=== PATIENT | male | born 1950 | race Caucasian/White ===

== ENCOUNTER 2019-06-03 15:18 | Inpatient (IN) ==
[2019-06-03] MEDS ORDERED: Isovue-370 500 ML BOTTLE IVP ONE (15:47)
[2019-06-03] MEDS ORDERED: Ondansetron 4 MG/2 ML VIAL IVP ONE ×2 (15:54→17:34)
[2019-06-03] MEDS ORDERED: *HR* HYDROmorphone (PF) 1 MG/ML SYRINGE IVP ONE ×2 (15:54→17:34)
[2019-06-03] MEDS ORDERED: 0.9 % Sodium Chloride 1,000 ML IVC ONE (16:05)
--- NOTE | 2019-06-03 16:14 | Emergency Department Note ---
Disposition Clinical Impression: Pancreatitis, Acute gallstone pancreatitis Disposition: Admitted As Inpatient Time of Disposition: 19:19 General Adult HPI - General Chief complaint: ED Abdominal Pain Stated complaint: abd pain,nausea Time Seen by Provider: 06/03/19 15:38 Source: patient Limitations: no limitations Nursing Notes Reviewed: Yes Vital Signs Reviewed: Yes - History of Present Illness HPI Narrative: Patient is a 68-year-old male history of hypertension presenting the emergency department today with abdominal pain. Patient states he woke up this morning and 11 9 pain if thinks the pain woke him up from his sleep. He still describes the pain as sharp pain that started in his lower abdomen and has moving up as well as radiating to his back. Patient states that he was drinking last night. Patient's are felt pain like this before. Patient had a bowel movement this morning that was normal, patient ate crackers and a cookie this morning but got nauseous however he did not throw up. Patient has no chest pain or shortness of breath. Patient is a smoker. Patient has had no prior abdominal surgeries. Patient has no dark tarry stools or blood. Pain Scale: 8 - Related Data Allergies Allergy/AdvReac Type Severity Reaction Status Date / Time No Known Allergies Allergy Verified 06/03/19 15:26 All systems ED: reviewed and negative except as stated. Review of Systems: As Per HPI Constitutional: Denies: fever, chills ENT ED: Denies: ear pain, throat pain Cardiovascular: Denies: chest pain, palpitations, dyspnea on exertion, orthopnea Respiratory: Denies: cough, dyspnea, wheezes Gastrointestinal: Reports: abdominal pain, nausea. Denies: vomiting, diarrhea, constipation, hematemesis Genitourinary: Denies: urgency, dysuria, frequency, hematuria Musculoskeletal: Reports: back pain Integumentary: Denies: rash, abrasion Neurological: Denies: headache, weakness Psychiatric: Denies: anxiety, depression Past Medical History - Past Medical History Attestation: Yes The following information was validated with the patient. Source: patient Medical history: Reports: no medical history, hypertension Psychiatric history: Reports: no psych history - Social History Smoking Status: Current every day smoker Smokeless Tobacco Status: No Alcohol use: Reports: occasionally Drug use: Reports: none Physical Exam - General Limitations: no limitations General appearance: alert, in no apparent distress - Head Head exam: atraumatic, normocephalic - Eye Eye exam: Present: normal appearance, PERRL, EOMI. Absent: scleral icterus - ENT ENT exam: normal exam, normal oropharynx, mucous membranes moist - Neck Neck exam: Present: normal inspection, full ROM - Chest Chest inspection: Present: normal inspection, symmetric chest wall rise. Absent: tenderness - Respiratory Respiratory exam: Present: normal lung sounds bilaterally. Absent: respiratory distress, wheezes - Cardiovascular Cardiovascular exam: Present: regular rate, normal rhythm, normal heart sounds - Abdominal Exam Abdominal exam: Present: soft, tenderness, guarding, normal bowel sounds. Absent: rebound, rigidity, Mix's sign, tenderness at McBurney's Point, scar Abdominal tenderness: Present: diffuse, moderate - Back Exam Back exam: Present: normal inspection, full ROM. Absent: tenderness, CVA tenderness (R), CVA tenderness (L) - Neurological Exam Neurological exam: Present: alert, oriented X3 - Psychiatric Psychiatric exam: Present: normal affect, normal mood - Skin Skin exam: Present: warm, dry Course Vital Signs Temperature 97.3 F L 06/03/19 15:23 Pulse Rate 73 06/03/19 15:23 Respiratory Rate 18 06/03/19 15:23 Blood Pressure 158/76 06/03/19 15:23 O2 Sat by Pulse Oximetry 96 06/03/19 15:23 Temperature 97.3 F L 06/03/19 15:23 Pulse Rate 76 06/03/19 17:55 Respiratory Rate 15 06/03/19 17:55 Blood Pressure 150/73 06/03/19 17:55 O2 Sat by Pulse Oximetry 97 06/03/19 17:55 Oxygen Delivery Oxygen Delivery Room Air Medical Decision Making - [facility] Narrative Medical decision making narrative: Patient presented to the emergency room with abdominal pain. Likely pancreatitis. Patient states he was drinking last night. I have ordered labs as well as a CT of his abdomen. I started a bag of fluids as well as provided IV Dilaudid for the patient's pain. Labs consistent with pancreatitis with an elevated lipase greater than 1800. Patient's pain is been controlled here with IV Dilaudid as well as Zofran for nausea. Spoke with GI. GI is aware having spoke with the hospitalist deformity. 19:18 Spoke with hospitalist who agreed to admit the patient. - Medical Records Medical records reviewed: Yes I reviewed the patient's medical records. - Lab Data Lab results reviewed: Yes I reviewed the patient's lab results. Result diagrams: 06/03/19 16:11 06/03/19 16:11 Lab Results 06/03/19 06/03/19 06/03/19 Range/Units 16:00 16:11 16:11 WBC 12.7 H (4.3-11.1) K/mcL RBC 5.24 (4.19-5.50) M/mcL Hgb 17.6 H (12.9-16.9) g/dL Hct 51.1 H (37.5-50.1) % MCV 97.5 (83.0-100.0) fL MCH 33.6 H (28.0-33.3) pg MCHC 34.4 (31.6-35.5) g/dL RDW 13.8 (11.5-14.5) % Plt Count 234 (140-400) K/mcL MPV 10.0 (9.4-12.4) fL Immature Gran % 0.3 (0-4) % Seg Neutrophils % 78.3 % Lymphocytes % 15.3 % Monocytes % 5.4 % Eosinophils % 0.3 % Basophils % 0.4 % Neutrophils # 10.0 H (1.6-8.9) K/mcL Lymphocytes # 2.0 (0.6-4.6) K/mcL Monocytes # 0.7 (0.0-1.3) K/mcL Eosinophils # 0.0 (0.0-0.6) K/mcL Basophils # 0.1 (0.0-0.2) K/mcL Sodium 132 L (136-145) mEq/L Potassium 4.0 (3.5-5.1) mEq/L Chloride 100 (98-107) mEq/L Carbon Dioxide 25 (23-29) mEq/L BUN 11 (8-23) mg/dL Creatinine 0.87 (0.70-1.30) mg/dL Est GFR ( Amer) > 60 (> 60) Est GFR (Non-Af Amer) > 60 (> 60) BUN/Creatinine Ratio 13 (6-26) Glucose 158 H (70-105) mg/dL Calculated Osmolality 277 L (280-300) Calcium 10.3 (8.6-10.3) mg/dL Total Bilirubin 0.9 (0.3-1.0) mg/dL Direct Bilirubin 0.2 (0.0-0.2) mg/dL Indirect Bilirubin 0.7 (0.0-1.2) mg/dL AST 18 (13-39) Units/L ALT 21 (7-52) Units/L Alkaline Phosphatase 76 (34-104) Units/L Serum Total Protein 7.6 (6.4-8.9) g/dL Albumin 4.6 (3.5-5.7) g/dL Globulin 3.0 (2.4-3.5) g/dL Albumin/Globulin Ratio 1.5 (1.1-2.2) Lipase > 1800 H (11-82) Units/L Urine Color Yellow (Yellow) Urine Clarity Clear (Clear) Urine pH 6.0 (5.0-8.0) pH Units Ur Specific [place] 1.021 (1.010-1.025) Urine Protein Trace (Neg-Trace) mg/dL Urine Glucose (UA) Normal (Normal) mg/dL Urine Ketones Negative (Negative) mg/dL Urine Blood Negative (Negative) Urine Nitrite Negative (Negative) Urine Bilirubin Negative (Negative) Urine Urobilinogen Normal (Normal) mg/dL Ur Leukocyte Esterase Negative (Negative) Ur Culture Indicated? NO (NO) - Radiology Data Radiology results reviewed: Yes I reviewed the patient's radiology results. Critical Care Time Critical Care Time: No Attestation Statement - Attestation Attestation: I examined this patient and my medical decision-making was reviewed with the Resident Physician. I agree with the documented findings, disposition and treatment plan as described except to the extent set forth below. Patient has had abdominal pain. The pain is especially in the epigastric region. The patient apparently did drink alcohol yesterday. Patient has some mild guarding to this area. The patient has distention to his abdomen as well. Patient has no chest pain, clear breath sounds on examination, good bowel sounds. The patient does have it appears to be pancreatitis. This is possibly gallstone pancreatitis. The patient is going to be admitted, given antibiotics. Patient however is not septic. The patient will be admitted in stable condition. Case was also discussed with GI.
[2019-06-03 16:18] LABS: Bilirubin,Urine Negative (Negative); Blood,Urine Negative (Negative); Clarity,Urine Clear (Clear); Color,Urine Yellow (Yellow); Glucose,Urine (UA) Normal (Normal); Ketones,Urine Negative (Negative); Leukocyte Esterase,Urine Negative (Negative); Nitrite,Urine Negative (Negative); Protein,Urine Trace mg/dL (Neg-Trace); Specific Gravity,Urine 1.021 (1.010-1.025); Urobilinogen,Urine Normal (Normal)
[2019-06-03 16:23] LABS: Basophils # 0.1 K/mcL (0.0-0.2); Basophils % 0.4 %; Eosinophils % 0.3 %; Hematocrit 51.1 % (37.5-50.1); Hemoglobin 17.6 g/dL (12.9-16.9); Immature Granulocytes % 0.3 % (0-4); Lymphocytes % 15.3 %; Mean Corpuscular HGB Conc 34.4 g/dL (31.6-35.5); Mean Corpuscular Hemoglobin 33.6 pg (28.0-33.3); Mean Corpuscular Volume 97.5 fL (83.0-100.0); Monocytes # 0.7 K/mcL (0.0-1.3); Monocytes % 5.4 %; Platelet Count 234 K/mcL (140-400); Red Blood Count 5.24 M/mcL (4.19-5.50); Red Cell Distribution Width 13.8 % (11.5-14.5); Segmented Neutrophils % 78.3 %; White Blood Count 12.7 K/mcL (4.3-11.1)
[2019-06-03 17:05] LABS: Alanine Aminotransferase 21 Units/L (7-52); Albumin 4.6 g/dL (3.5-5.7); Albumin/Globulin Ratio 1.5 (1.1-2.2); Alkaline Phosphatase 76 Units/L (34-104); Aspartate Amino Transferase 18 Units/L (13-39); BUN/Creatinine Ratio 13 (6-26); Bilirubin,Direct 0.2 mg/dL (0.0-0.2); Bilirubin,Indirect 0.7 mg/dL (0.0-1.2); Bilirubin,Total 0.9 mg/dL (0.3-1.0); Blood Urea Nitrogen 11 mg/dL (8-23); Calcium 10.3 mg/dL (8.6-10.3); Carbon Dioxide 25 mEq/L (23-29); Chloride 100 mEq/L (98-107); Glucose 158 mg/dL (70-105); Lipase > 1800 Units/L (11-82); Osmolality,Calculated 277 (280-300); Sodium 132 mEq/L (136-145); Total Protein 7.6 g/dL (6.4-8.9); eGFR For African Americans > 60 (> 60); eGFR For Non-African Americans > 60 (> 60)
[2019-06-03] MEDS ORDERED: Naloxone 0.4 MG/ML INJ IVP PRN ×2 (19:39→19:42)
[2019-06-03] MEDS ORDERED: Ondansetron 4 MG/2 ML VIAL IVP PRN (19:39)
--- NOTE | 2019-06-03 19:47 | Internal Med History&Physical ---
Date of Encounter: 06/03/19 Time of Encounter: 19:43 Internal Medicine - H&P: HPI Chief complaint: Abdominal pain History of present illness: Mr. Chaves is a 68 year old male with past medical history of hypertension and smoking history who presented to the ED due to complaints of abdominal pain. Patient states he was in his usual state of health last night. He awoke up this morning around 7 AM due to significant lower abdominal pain 7 out of 10 in intensity described as constant and dull. Patient had his morning cup of coffee and a cookie which only seemed to aggravate his pain. He reports pain became progressively worse throughout the day and gradually began to localize towards the epigastrium with radiation on both sides to his back. Patient reports naus ea but no vomiting or diarrhea. He does endorse subjective fever and chills. No prior history of similar abdominal pain. Patient is a chronic smoker and currently smokes a pack and half a day since he was 16. Drinks 4 beers twice a week. Patient currently retired. Reports family history of bone cancer and is brother. On arrival patient was afebrile, mildly hypertensive with normal heart rate. Laboratory workup notable for a mild leukocytosis of 12.7, hemoglobin of 7.6 and hematocrit 51.1. Lipase found to be greater than 1800. CT of the abdomen was performed which showed a 5 mm distal common bile duct calculus causing prior duodenal and peripancreatic edema worrisome for pancreatitis. Additionally a 1.5 cm mildly heterogeneous renal lesion was also noted as well as bilateral adr enal nodules. Patient was given fluids. Responded to Dilaudid in the ED. Case discussed with Dr. Roldan who was hopeful that the stone would pass on its own but will consult patient in the morning. Past Med Surg Social Fam HX - Past Medical History Medical history: no medical history, hypertension Psychiatric history: no psych history - Social History Smoking Status: Current every day smoker Smokeless Tobacco Status: No Alcohol use: occasionally Drug use: none Internal Medicine - H&P: Meds Lisinopril/Hydrochlorothiazide [Lisinopril-Hctz 10-12.5 mg Tab] 1 tab PO QAM 06/04/19 [History] Simvastatin [Zocor] 40 mg PO HS 06/04/19 [History] Allergy/AdvReac Type Severity Reaction Status Date / Time No Known Allergies Allergy Verified 06/03/19 15:26 All Systems PM: A 10-system review of systems was performed and is negative for pertinent findings except as documented above in the HPI. - Constitutional Constitutional: no chills, no fever(s), no night sweats - EENT Eyes: no change in vision, no discharge, no pain, no photophobia Ears: no ear discharge, no ear pain, no tinnitus Nose, mouth and throat: no dysphagia, no nasal discharge, no neck pain, no sore throat - Cardiovascular Cardiovascular ROS IM: no chest pain, no diaphoresis, no dyspnea, no lightheadedness, no palpitations, no syncope - Respiratory Respiratory: no cough, no dyspnea, no wheezing, no excessive phlegm production - Gastrointestinal Gastrointestinal: no abdominal pain, no diarrhea, no hematemesis, no hematochezia, no melena, no nausea, no vomiting - Musculoskeletal Musculoskeletal ROS IM: no numbness, no tingling - Integumentary Integumentary IM: no rash, no unusual bruising - Neurological Neurological ROS: no confusion, no convulsions, no focal weakness, no numbness, no tingling, no tremor(s) - Hematologic/Lymphatic Hematologic/Lymphatic: no easy bruising - Constitutional Vitals: Temp Pulse Resp BP Pulse Ox 97.3 F L 76 15 150/73 97 06/03/19 15:23 06/03/19 17:55 06/03/19 17:55 06/03/19 17:55 06/03/19 17:55 Exam: General: Alert and oriented Skin:Normal color, no rash, no lesions. HEENT:EOM, pupils equal, round and reactive. Cardiovascular:Normal S1 & S2, no rubs, murmurs or gallops. No JVD. Pulse regu lar. Lungs:Normal breath sounds, no wheezes or crackles. Abdomen: Abdomen soft and diffusely tender to palpation. No rebound or guarding noted. Extremities:No deformity, no edema or tenderness, no joint swelling or clubbing. Neurological:Normal cognition and motor skills. Pulses:Carotid and radial pulses normal +2. Rest of the physical exam is non contributory Internal Med - H&P Results - Labs CBC & Chem 7: 06/04/19 04:18 06/04/19 04:18 Labs: Short CBC 06/03/19 Range/Units 16:11 WBC 12.7 H (4.3-11.1) K/mcL Hgb 17.6 H (12.9-16.9) g/dL Hct 51.1 H (37.5-50.1) % Plt Count 234 (140-400) K/mcL Neutrophils # 10.0 H (1.6-8.9) K/mcL BMP 06/03/19 16:11 Sodium 132 L Potassium 4.0 Chloride 100 Carbon Dioxide 25 BUN 11 Creatinine 0.87 Glucose 158 H Calcium 10.3 Liver Function 06/03/19 Range/Units 16:11 Total Bilirubin 0.9 (0.3-1.0) mg/dL Direct Bilirubin 0.2 (0.0-0.2) mg/dL AST 18 (13-39) Units/L ALT 21 (7-52) Units/L Alkaline Phosphatase 76 (34-104) Units/L Albumin 4.6 (3.5-5.7) g/dL Urine 06/03/19 Range/Units 16:00 Urine Color Yellow (Yellow) Urine Clarity Clear (Clear) Urine pH 6.0 (5.0-8.0) pH Units Ur Specific [place] 1.021 (1.010-1.025) Urine Protein Trace (Neg-Trace) mg/dL Urine Glucose (UA) Normal (Normal) mg/dL - Impressions ITS Impressions Abdomen/Pelvis CT 06/03/19 15:47 IMPRESSION: 5 mm distal common bile duct calculus causing prior duodenal and peripancreatic edema worrisome for pancreatitis. 1.5 cm mildly heterogeneous right indeterminate renal lesion. Renal protocol CT or MRI may be beneficial for further characterization. Bilateral adrenal nodules these can be further evaluated when evaluating the suspicious appearing right renal indeterminate lesion. D/ / Rafi Key / Rafi Key Interpreting Provider: Rafi Key - Assessment and Plan (1) Acute gallstone pancreatitis Current Visit: Yes Status: Acute Assessment and plan: Patient presenting with acute abdominal pain epigastric and radiating to the back. Found to have an elevated lipase of over 1800. CT scan of the abdomen showing a 5 mm distal common bile duct calculus causing prior duodenal and peripancreatic edema consistent with gallstone pancreatitis. Case was discussed with Dr. Roldan with gastroenterology. Currently hemodynamically stable though does appear to be hemoconcentrated. Received 1 L fluid bolus. Has responded to Dilaudid for pain. Clinically does not appear to be septic at this time. -Continue moderately aggressive fluid hydration and monitor for signs of fluid overload -Pain control as needed with sublingual oxycodone -We will consider antibiotic prophylaxis if patient begins to exhibit signs of ongoing inflammatory/infectious process. -[facility] market consultant and will follow the patient in the morning. -We will likely need surgery consult for possible cholecystectomy prior to discharge. (2) Hypertension Current Visit: Yes Status: Acute Assessment and plan: Mildly hypertensive. We will hold blood pressure medications for now and monitor. Qualifiers: Hypertension type: essential hypertension Qualified Code(s): I10 - Essential (primary) hypertension (3) Hyperlipidemia Current Visit: Yes Status: Acute Qualifiers: Hyperlipidemia type: mixed hyperlipidemia Qualified Code(s): E78.2 - Mixed hyperlipidemia (4) Smoking history Current Visit: Yes Status: Acute Assessment and plan: Patient has a significant smoking history. Currently smokes a pack and half a day. Discussed risks of continued behavior and smoking cessation. Denies need for nicotine patch at this time (5) Abnormal finding on CT scan Current Visit: Yes Status: Acute Assessment and plan: A 1.5 cm mildly heterogeneous right indeterminant renal lesion noted on CT of the abdomen and pelvis. Renal protocol with CT or MRI may be beneficial for further characterization. Additionally bilateral adrenal nodules were seen. -Consider consult to oncology for further recommendations in addition to further imaging workup. (6) DVT prophylaxis Current Visit: Yes Status: Acute Assessment and plan: Subcutaneous heparin - Time Spent With Patient Total time spent is greater than 50% in coordination of care (as documented) at patient's floor/unit and/or counseling patient:
[2019-06-03] MEDS: Ringers Solution, Lactated 1,000 ML IVC SCH (20:57)
[2019-06-03] MEDS ORDERED: Ketorolac 15 MG/ML VIAL IVP ONE (23:23)
[2019-06-03] MEDS: *HR* Heparin 5,000 UNIT/ML VIAL SQ SCH (23:37)
[2019-06-04] MEDS: Ringers Solution, Lactated 1,000 ML IVC SCH ×3 (01:18→14:20)
[2019-06-04 04:50] LABS: Basophils % 0.2 %; Eosinophils % 0.2 %; Hematocrit 47.4 % (37.5-50.1); Hemoglobin 16.2 g/dL (12.9-16.9); Immature Granulocytes % 0.4 % (0-4); Lymphocytes # 1.5 K/mcL (0.6-4.6); Lymphocytes % 12.4 %; Mean Corpuscular HGB Conc 34.2 g/dL (31.6-35.5); Mean Corpuscular Volume 99.4 fL (83.0-100.0); Mean Platelet Volume 10.3 fL (9.4-12.4); Monocytes # 0.9 K/mcL (0.0-1.3); Monocytes % 7.3 %; Neutrophils # 9.7 K/mcL (1.6-8.9); Platelet Count 196 K/mcL (140-400); Red Blood Count 4.77 M/mcL (4.19-5.50); Red Cell Distribution Width 13.7 % (11.5-14.5); Segmented Neutrophils % 79.5 %; White Blood Count 12.3 K/mcL (4.3-11.1)
[2019-06-04 04:57] LABS: INR 1.1; Prothrombin Time 12.2 Seconds (9.4-12.1)
[2019-06-04 05:13] LABS: Alanine Aminotransferase 15 Units/L (7-52); Albumin 3.8 g/dL (3.5-5.7); Albumin/Globulin Ratio 1.6 (1.1-2.2); Alkaline Phosphatase 63 Units/L (34-104); Aspartate Amino Transferase 14 Units/L (13-39); BUN/Creatinine Ratio 13 (6-26); Bilirubin,Total 0.8 mg/dL (0.3-1.0); Blood Urea Nitrogen 11 mg/dL (8-23); Calcium 8.8 mg/dL (8.6-10.3); Carbon Dioxide 25 mEq/L (23-29); Chloride 101 mEq/L (98-107); Chol/HDL Ratio 3.6 (0-4.9); Cholesterol 150 mg/dL (< 200); Globulin 2.4 g/dL (2.4-3.5); Glucose 126 mg/dL (70-105); HDL Cholesterol 42 mg/dL (40-59); LDL Cholesterol,Calculated 91 mg/dL (0-99); Magnesium 1.9 mg/dL (1.6-2.6); Osmolality,Calculated 283 (280-300); Potassium 3.8 mEq/L (3.5-5.1); Sodium 136 mEq/L (136-145); Total Protein 6.2 g/dL (6.4-8.9); Triglycerides 84 mg/dL (< 150); eGFR For African Americans > 60 (> 60); eGFR For Non-African Americans > 60 (> 60)
[2019-06-04] MEDS: *HR* Heparin 5,000 UNIT/ML VIAL SQ SCH ×2 (07:36→16:38)
[2019-06-04] MEDS ORDERED: Promethazine 12.5 MG in 0.9 % Sodium Chloride 50 ML IVPB PRN (08:39)
--- NOTE | 2019-06-04 08:48 | Gastroenterology Consult Note ---
<Geovanna Swanson - Last Filed: 06/04/19 09:51> Date of Encounter: 06/04/19 Time of Encounter: 08:40 - Assessment and plan (1) Acute gallstone pancreatitis Current Visit: Yes Status: Acute Assessment and plan: Presented with acute onset sharp abdominal pain in the right upper, epigastric and left upper quadrants The night prior, he had 4 beers with two cheeseburgers and reports 4 beers twice a week In the ED noted to have lipase above [address] finding of peripancreatic edema and 5 mm distal common bile duct Continues to have severe pain this morning, reporting not taking a deep breath limited due to pain Recommend IV hydration and NPO at this time Restart diet as tolerated, if nausea continues and diet cannot be restarted consider dobhoff tube for feeding to assist in mucosal barrier Continue pain control with IV pain medications and zofran as well as phenergan ordered for nausea Recommended changing diet outpatient and alcohol cessation counseling to prevent recurrences MRCP pending and may require an ERCP for stone extraction Ordered spirometry to prevent sequela of lung injury Further recommendations by Dr. Roldan - Time Spent With Patient Total time spent is greater than 50% in coordination of care (as documented) at patient's floor/unit and/or counseling patient: GI History of Present Illness - Data of Consult Requesting Physician: Martínez Morrell DO - Consult Narrative History of present illness: Mr. Chaves is a 68 year old male with past medical history of hypertension and hyperlipidemia on losartan and stain and denies any other medication use. He presented to the ED on 06/03/19 complaining of acute onset of severe abdominal pain on the morning of 06/03/19. He does have history of daily tobacco use with [id number] history. Additionally reports drinking 4 beers twice a week with his buddies, denies any other drug use such as marijuana, cocaine, heroin. He reported the pain woke him up in the morning. Which is described as constant and sharp, localized in the epigastric region radiating to right upper and left upper quadrants. Complaining of nausea but no emesis or bowel changes. He denies pain like this in the past and reports the oral pain medication is not relieving this pain. Does report he has his gallbladder intact. He reports the night prior he drank 4 beers and ate 2 cheeseburgers. In the ED he was noted to have WBC of 12.7 with lipase greater than 1800. He had a CT of the abdomen which showed a 5 mm distal common bile duct calculus causing peripancreatic edema concerning for pancreatitis. This morning he is in bed complaining of severe abdominal pain which worsens with a deep breath. He denies fever, chills, chest pain, emesis. Past Med Surg Social Fam HX - Past Medical History Medical history: no medical history, hypertension Psychiatric history: no psych history - Past Surgical History Surgical History: no surgical history - Social History Smoking Status: Current every day smoker Smokeless Tobacco Status: No Alcohol use: occasionally Drug use: none - Family History Brother Hx Family Cancer: Yes (Bone cancer in his brother) - Gastrointestinal Gastrointestinal: Present: abdominal pain, nausea. Absent: diarrhea, vomiting - Constitutional Constitutional: no fever(s), no weight loss - EENT Nose, mouth and throat: Absent: dysphagia, sore throat - Cardiovascular Cardiovascular ROS: Absent: chest pain, palpitations - Respiratory Respiratory IM: Absent: cough, dyspnea, hemoptysis - Genitourinary Genitourinary: Absent: change in color, Urinary frequency - Neurological ROS Neurological GI: Absent: headache(s), weakness - Musculoskeletal Musculoskeletal ROS GI: Absent: back pain - Integumentary Integumentary GI: Absent: jaundice, pruritis, rash - Constitutional Vitals: Temp Pulse Resp BP Pulse Ox 98.4 F 87 17 102/68 90 06/04/19 06:18 06/04/19 06:18 06/04/19 06:18 06/04/19 06:18 06/04/19 06:18 General appearance: Present: A&O X 3 Exam: mild distress - Head Head exam: Present: atraumatic, normal inspection - Eye Eye exam: Present: EOMI, sclera anicteric. Absent: conjunctival injection - ENT ENT exam: Present: mucous membranes moist, normal oropharynx - Neck Neck exam general surgery: Present: full ROM. Absent: tenderness, trachea midline - Respiratory Respiratory exam: Present: CTAB. Absent: rhonchi, wheezes - Cardiovascular Cardiovascular exam: Present: RRR, +S1, +S2 - GI/Abdominal GI/Abdominal exam: Present: soft, tenderness. Absent: firm Additional comments: Diffuse, worse in left upper and right upper quadrants - Extremities Exam Extremities exam: Present: warm. Absent: pedal edema, tenderness - Skin Skin exam: Present: dry, intact Results - Labs CBC & Chem 7: 06/04/19 04:18 06/04/19 04:18 Labs: Last Result 06/04/19 04:18 Calcium 8.8 Triglycerides 84 Entire Visit 06/04/19 06/04/19 06/04/19 04:18 04:18 04:18 Hgb 16.2 Hct 47.4 PT 12.2 H Total Bilirubin 0.8 AST 14 ALT 15 - ABG ABG results: PT/INR, D-dimer PT 12.2 Seconds (9.4-12.1) H 06/04/19 04:18 - Impressions Impressions Abdomen/Pelvis CT 06/03/19 15:47 IMPRESSION: 5 mm distal common bile duct calculus causing prior duodenal and peripancreatic edema worrisome for pancreatitis. 1.5 cm mildly heterogeneous right indeterminate renal lesion. Renal protocol CT or MRI may be beneficial for further characterization. Bilateral adrenal nodules these can be further evaluated when evaluating the suspicious appearing right renal indeterminate lesion. D/ / Rafi Key / Rafi Key Interpreting Provider: Rafi Key Consult Discharge Plan - Plan Referrals: NONE,PCP [Primary Care Provider] - <Johnson Roldan - Last Filed: 06/06/19 22:22> Date of Encounter: 06/06/19 - Time Spent With Patient Total time spent is greater than 50% in coordination of care (as documented) at patient's floor/unit and/or counseling patient: GI History of Present Illness - Data of Consult Patient: new to practice Consult date: 06/04/19 Requesting Physician: Martínez Morrell DO - Consult Narrative Reason for consult: Acute pancreatitis History of present illness: Mr. Chaves is a 68 year old male presenting with acute pancreatitis. CT scan shows a primarily stone inspissated at the ampulla confirmed by MRCP given the patient's white count and unremitting pain patient may need ERCP with sphincterotomy despite the fact that he does not have ascending cholangitis as his liver as his liver enzymes are normal. I suspect the patient will need an ERCP unless he dramatically improves. We will then need a laparoscopic cholecystectomy prior to discharge was hospital. Made very clear to him that he needs to completely discontinue alcohol. He drinks about between 4-5 beers a day and actually had 4 beers a day before the pain started with very probable that he has underlying chronic pancreatitis - Constitutional Vitals: Temp Pulse Resp BP Pulse Ox 98.3 F 82 18 139/78 98 06/06/19 20:00 06/06/19 20:00 06/06/19 20:00 06/06/19 20:00 06/06/19 20:00 Results - Labs CBC & Chem 7: 06/06/19 00:44 06/06/19 00:44 - ABG ABG results: ABG ABG pH 7.42 pH Units (7.32-7.45) 06/04/19 09:37 ABG pCO2 38 mmHg (35-45) 06/04/19 09:37 ABG pO2 46 mmHg (85-104) L* 06/04/19 09:37 ABG O2 Saturation 83 % (95-98) L 06/04/19 09:37 PT/INR, D-dimer PT 12.2 Seconds (9.4-12.1) H 06/04/19 04:18 - Impressions Impressions Chest X-Ray 06/05/19 13:08 IMPRESSION: Vascular congestion with bibasilar atelectasis or infiltrate, left greater than right. D/ / 06/05/2019 14:31:13 Franck Magana MD / [facility] Interpreting Provider: Franck Magana MD - Attending Attestation I examined this patient and my medical decision-making was reviewed with the Resident Physician. I agree with the documented findings, disposition and treatment plan as described except to the extent set forth below.
[2019-06-04] MEDS ORDERED: Morphine Sulfate 2 MG/ML SYRINGE IVP PRN (09:06)
--- NOTE | 2019-06-04 09:29 | Internal Med Progress Note ---
<Luis Alberto Grossman - Last Filed: 06/04/19 15:04> Hospitalist Progress Note - Encounter Date of Encounter: 06/04/19 Time of Encounter: 09:29 - Subjective Interval History: Pt was lying in bed upon my arrival. Denies any chest pain, trouble breathing, headaches, diarrhea, constipation, vomiting. Admits to feeling nauseous and abdominal pain radiating to the back. No new complaints - Exam Vitals: Temp Pulse Resp BP Pulse Ox 98.4 F 87 17 102/68 90 06/04/19 06:18 06/04/19 06:18 06/04/19 06:18 06/04/19 06:18 06/04/19 06:18 Exam: Gen: AAOx3, NAD, pleasant CVS: S1, S2, regular rhythm Lungs: CTA B/L, no rhonchi, no rales, on 2L O2 nasal cannula Abdominal: Tenderness to palpation in epigastric area, atraumatic Extremities: warm to touch, dorsal pedal pulses strong B/L, dry - Assessment and Plan (1) Acute gallstone pancreatitis Current Visit: Yes Status: Acute Assessment and Plan: -Presented to ED 06/03 c/o epigastric pain that radiated to the back, worst with food, associated with nausea. -CT scan abdomen in ER showed peripancreatic edema concerning for pancreatitis and 5mm distal common bile duct concerning for gallstone blockage. -Lipase >1800 in ER -made NPO -Pain management w/ morphine -Aggressive fliud resuscitation -GI consulted; MRCP ordered 06/04/2019 -Planning for potential ERCP -IV abx withheld but will watch for signs of ascending infection due to obstruction -Continue management per GI; NPO, IV Fluids, pain management -Watch for compartment syndrome with fluids; sensation loss, new abdominal pain -Will likely need surgery consult for cholecystecomy prior to d/c (2) Abnormal finding on CT scan Current Visit: Yes Status: Acute Assessment and Plan: A 1.5 cm mildly heterogeneous right indeterminate renal lesion noted on CT of the abdomen and pelvis. Renal protocol with CT or MRI may be beneficial for further characterization. Additionally bilateral adrenal nodules were seen. -Consider consult to oncology for further recommendations in addition to further imaging workup (3) Hypertension Current Visit: Yes Status: Acute Assessment and Plan: mildy hypertensive at admission; will hold hTN medications for now and monitor (4) DVT prophylaxis Current Visit: Yes Status: Acute Assessment and Plan: subcutaneous heparin (5) Smoking history Current Visit: Yes Status: Acute Assessment and Plan: -Patient has extensive 75 year smoking history. -Smoking cessation discussed -Denies need for nicotine patch at this time - Time Spent with Patient Total time spent is greater than 50% in coordination of care (as documented) at patient's floor/unit and/or counseling patient: Internal Medicine: Result - Labs CBC & Chem 7: 06/04/19 04:18 06/04/19 04:18 Labs: Short CBC 06/03/19 06/04/19 Range/Units 16:11 04:18 WBC 12.7 H 12.3 H (4.3-11.1) K/mcL Hgb 17.6 H 16.2 (12.9-16.9) g/dL Hct 51.1 H 47.4 (37.5-50.1) % Plt Count 234 196 (140-400) K/mcL Neutrophils # 10.0 H 9.7 H (1.6-8.9) K/mcL BMP 06/03/19 06/04/19 16:11 04:18 Sodium 132 L 136 Potassium 4.0 3.8 Chloride 100 101 Carbon Dioxide 25 25 BUN 11 11 Creatinine 0.87 0.82 Glucose 158 H 126 H Calcium 10.3 8.8 Liver Function 06/03/19 06/04/19 Range/Units 16:11 04:18 Total Bilirubin 0.9 0.8 (0.3-1.0) mg/dL Direct Bilirubin 0.2 (0.0-0.2) mg/dL AST 18 14 (13-39) Units/L ALT 21 15 (7-52) Units/L Alkaline Phosphatase 76 63 (34-104) Units/L Albumin 4.6 3.8 (3.5-5.7) g/dL Urine 06/03/19 Range/Units 16:00 Urine Color Yellow (Yellow) Urine Clarity Clear (Clear) Urine pH 6.0 (5.0-8.0) pH Units Ur Specific [place] 1.021 (1.010-1.025) Urine Protein Trace (Neg-Trace) mg/dL Urine Glucose (UA) Normal (Normal) mg/dL - ABG Interpretation ABG results: PT/INR, D-dimer PT 12.2 Seconds (9.4-12.1) H 06/04/19 04:18 - Impressions Impressions Abdomen/Pelvis CT 06/03/19 15:47 IMPRESSION: 5 mm distal common bile duct calculus causing prior duodenal and peripancreatic edema worrisome for pancreatitis. 1.5 cm mildly heterogeneous right indeterminate renal lesion. Renal protocol CT or MRI may be beneficial for further characterization. Bilateral adrenal nodules these can be further evaluated when evaluating the suspicious appearing right renal indeterminate lesion. D/ / Rafi Key / Rafi Key Interpreting Provider: Rafi Key Consult Discharge Plan - Plan Referrals: NONE,PCP [Primary Care Provider] - <Martínez Morrell - Last Filed: 06/04/19 17:37> Hospitalist Progress Note - Encounter Date of Encounter: 06/04/19 - Exam Vitals: Temp Pulse Resp BP Pulse Ox 98.5 F 88 17 104/62 95 06/04/19 14:54 06/04/19 14:54 06/04/19 14:54 06/04/19 14:54 06/04/19 14:54 - Assessment and Plan (1) Acute gallstone pancreatitis Current Visit: Yes Status: Acute (2) Hypertension Current Visit: Yes Status: Acute (3) Hyperlipidemia Current Visit: Yes Status: Acute (4) Smoking history Current Visit: Yes Status: Acute (5) DVT prophylaxis Current Visit: Yes Status: Acute (6) Abnormal finding on CT scan Current Visit: Yes Status: Acute (7) Tobacco abuse Current Visit: Yes Status: Acute - Time Spent with Patient Total time spent is greater than 50% in coordination of care (as documented) at patient's floor/unit and/or counseling patient: Internal Medicine: Result - Labs CBC & Chem 7: 06/04/19 04:18 06/04/19 04:18 Labs: Short CBC 06/04/19 Range/Units 04:18 WBC 12.3 H (4.3-11.1) K/mcL Hgb 16.2 (12.9-16.9) g/dL Hct 47.4 (37.5-50.1) % Plt Count 196 (140-400) K/mcL Neutrophils # 9.7 H (1.6-8.9) K/mcL BMP 06/04/19 04:18 Sodium 136 Potassium 3.8 Chloride 101 Carbon Dioxide 25 BUN 11 Creatinine 0.82 Glucose 126 H Calcium 8.8 Liver Function 06/04/19 06/04/19 Range/Units 04:18 08:49 Total Bilirubin 0.8 0.9 (0.3-1.0) mg/dL Direct Bilirubin 0.2 (0.0-0.2) mg/dL AST 14 14 (13-39) Units/L ALT 15 16 (7-52) Units/L Alkaline Phosphatase 63 63 (34-104) Units/L Albumin 3.8 3.8 (3.5-5.7) g/dL - ABG Interpretation ABG results: ABG ABG pH 7.42 pH Units (7.32-7.45) 06/04/19 09:37 ABG pCO2 38 mmHg (35-45) 06/04/19 09:37 ABG pO2 46 mmHg (85-104) L* 06/04/19 09:37 ABG O2 Saturation 83 % (95-98) L 06/04/19 09:37 PT/INR, D-dimer PT 12.2 Seconds (9.4-12.1) H 06/04/19 04:18 - Impressions Impressions Abdomen/Pelvis CT 06/03/19 15:47 IMPRESSION: 5 mm distal common bile duct calculus causing prior duodenal and peripancreatic edema worrisome for pancreatitis. 1.5 cm mildly heterogeneous right indeterminate renal lesion. Renal protocol CT or MRI may be beneficial for further characterization. Bilateral adrenal nodules these can be further evaluated when evaluating the suspicious appearing right renal indeterminate lesion. D/ / Rafi Key / Rafi Key Interpreting Provider: Rafi Key Abdomen MRI 06/04/19 08:55 IMPRESSION: 1. Truncation of the distal common bile duct likely due to the 5 mm stone seen on CT. Minimal upstream biliary ductal dilatation. 2. Peripancreatic edema compatible with acute pancreatitis. No peripancreatic fluid collection. 3. A 1.3 cm T2 hypointense lesion in the lower pole of the right kidney corresponds to the indeterminate lesion seen on CT. As per the CT report, recommend further evaluation with contrast-enhanced renal CT or MRI. 4. Right lower lobe airspace disease could represent pneumonia. D/ / Naresh Fowler MD / Naresh Fowler MD Interpreting Provider: Naresh Fowler MD Chest X-Ray 06/04/19 09:03 IMPRESSION: Mild bilateral lower lobe opacities which could represent edema or infiltrates. Small bilateral effusions. Follow up to resolution is suggested. D/ / 06/04/2019 11:12:08 Tegan Chacon MD / lv Interpreting Provider: Tegan Chacon MD Abdomen Ultrasound 06/04/19 10:30 IMPRESSION: 1. Dilated common bile duct measuring 8.4 mm. This was shown to be secondary to a calculus in the distal common bile duct seen on the CT scan from yesterday. D/ / Edd Pollard MD / Edd Pollard MD Interpreting Provider: Edd Pollard MD - Attending Attestation The history, physical exam, and medical decision making was performed by the medical student either while I was physically present and actively involved or I personally re-performed the exam and medical decision making. I have verified the accuracy of the medical student's documentation with regards to the history, physical exam findings, and medical decision making on 06/04/19. Mr Chaves is currently admitte for acute gallstone pancreatitis. He remains moderate to high risk due to potential for worsening clinical status. Mr Chaves is having a lot of abdominal pain. No fever or chills. Hurts to take deep breath. No diarrhea but has nausea. Exam: Alert. Uncomfortable. NC. Mucus membranes dry. EOMI. Neck supple. Heart reg and tachy. No wheeze. ABd distended and tender in epigastic region. No rash. Moves all extremties. I/P 1. Acute gallstone pancreatitis - NPO. POWDER MONKEY pump for pain control. GI eval - ERCP. 2 HTN Further diagnoses and plan as above. <Martínez Morrell A - Last Filed: 06/04/19 17:37> (2) Hypertension Qualifiers: Hypertension type: essential hypertension Qualified Code(s): I10 - Essential (primary) hypertension (3) Hyperlipidemia Qualifiers: Hyperlipidemia type: mixed hyperlipidemia Qualified Code(s): E78.2 - Mixed hyperlipidemia
[2019-06-04 09:40] LABS: ABG Base Excess 0 mEq/L (-2 to 3); ABG HCO3 25 mEq/L (21-27); ABG Oxygen Saturation 83 % (95-98); ABG PCO2 38 mmHg (35-45); ABG PH 7.42 pH Units (7.32-7.45); ABG PO2 46 mmHg (85-104); ABG TCO2 26 mEq/L (20-26)
[2019-06-04 09:54] LABS: Albumin 3.8 g/dL (3.5-5.7); Albumin/Globulin Ratio 1.5 (1.1-2.2); Bilirubin,Direct 0.2 mg/dL (0.0-0.2); Bilirubin,Indirect 0.7 mg/dL (0.0-1.2); Bilirubin,Total 0.9 mg/dL (0.3-1.0); Globulin 2.6 g/dL (2.4-3.5); Total Protein 6.4 g/dL (6.4-8.9)
[2019-06-04] MEDS ORDERED: *HR* HYDROmorphone 2 MG/ML SYRINGE IVP PRN (13:53)
[2019-06-04] MEDS: Morphine PCA 30 MG/ 30 ML 30 ML PCA.VIAL IVC PRN (15:01)
[2019-06-05] MEDS: *HR* Heparin 5,000 UNIT/ML VIAL SQ SCH ×4 (00:15→23:57)
[2019-06-05] MEDS: Morphine PCA 30 MG/ 30 ML 30 ML PCA.VIAL IVC PRN (04:12)
[2019-06-05] MEDS ORDERED: *HR* FentaNYL (PF) 100 MCG/2 ML VIAL ONE ×2 (07:17→11:11)
[2019-06-05] MEDS ORDERED: *HR* Midazolam HCl 2 MG/2 ML VIAL ONE (07:17)
[2019-06-05] MEDS ORDERED: *HR* Propofol 200 MG/20 ML VIAL IVP ONE (07:17)
[2019-06-05] MEDS ORDERED: *HR* Succinylcholine 200 MG/10 ML VIAL IVP ONE (07:18)
[2019-06-05] MEDS ORDERED: Ondansetron 4 MG/2 ML VIAL ONE (07:18)
[2019-06-05] MEDS ORDERED: Dexamethasone 4 MG/ML VIAL ONE (07:18)
[2019-06-05] MEDS ORDERED: Lidocaine -MPF 2% 2 ML VIAL ONE (07:18)
[2019-06-05] MEDS ORDERED: *HR* Rocuronium Bromide 50 MG/5 ML VIAL ONE (07:18)
--- NOTE | 2019-06-05 07:22 | Anesthesia Evaluation PreOp ---
Date of Encounter: 06/05/19 Time of Encounter: 07:22 - Past History Alcohol Use: occasionally Drug use: none Medications and Allergies Lisinopril/Hydrochlorothiazide [Lisinopril-Hctz 10-12.5 mg Tab] 1 tab PO QAM 06/04/19 [History] Simvastatin [Zocor] 40 mg PO HS 06/04/19 [History] Allergy/AdvReac Type Severity Reaction Status Date / Time No Known Allergies Allergy Verified 06/03/19 15:26 Anesthesia Results - Labs 06/04/19 04:18 06/04/19 04:18
--- NOTE | 2019-06-05 07:29 | Anesthesia Evaluation PreOp ---
Date of Encounter: 06/05/19 Time of Encounter: 08:18 - Past History Planned Operation: ERCP Cardiac History: HTN, Hyperlipidemia Pulmonary History: Smoker, Other (hypoxia) Other Medical History: Hepatic (common duct stone) Alcohol Use: occasionally Drug use: none Medications and Allergies Lisinopril/Hydrochlorothiazide [Lisinopril-Hctz 10-12.5 mg Tab] 1 tab PO QAM 06/04/19 [History] Simvastatin [Zocor] 40 mg PO HS 06/04/19 [History] Allergy/AdvReac Type Severity Reaction Status Date / Time No Known Allergies Allergy Verified 06/03/19 15:26 - Meds/Allergy Pre-op Review Medications Reviewed: Yes Allergies Reviewed: Yes Beta Blockers on Current Med List: No Anesthesia Results - Labs 06/04/19 04:18 06/04/19 04:18 abg had po2 of 47 but patient has no history of hypoxia and excellant exercise tolerance Anesthesia Exam Vital Signs/O2 Sat, Most Current Temp Pulse Resp BP Pulse Ox 99.6 F 85 16 101/60 92 06/05/19 03:13 06/05/19 03:13 06/05/19 03:13 06/05/19 03:13 06/05/19 03:13 Vital Signs/O2 Sat/Glucose, Most Recent Temp Pulse Resp BP Pulse Ox 99.6 F 85 16 101/60 92 06/05/19 03:13 06/05/19 03:13 06/05/19 03:13 06/05/19 03:13 06/05/19 03:13 Blood Glucose* 103 - HEENT Pupil (Motor): Pupils equal, EOMI Mallampati: III Teeth: Edentulous Denture Type: Upper: Complete, Lower: Complete Oral Opening: Greater than 3 - CLEAT FEEDER LOC: Oriented CLEAT FEEDER Motor: Normal RUE, Normal LUE, Normal RLE, Normal LLE, Normal Face CLEAT FEEDER Sensory: Normal: RUE, LUE, RLE, LLE, Face - Pulmonary Breath Sounds: bilateral Clear Respiratory Effort: Symmetrical Anesthesia Assess/Plan ASA Score: 3 Level of consciousness: Cooperative, Oriented Anesthetic Plan: General Monitoring Plan: Standard Monitors Recovery Plan: PACU
[2019-06-05] MEDS ORDERED: Lidocaine HCL 4 ML Topical Solution (Laryng-O-Jet Kit Sterile Pak) TP ONE (09:14)
[2019-06-05] MEDS ORDERED: *HR* PHENYLEPHRINE 1,000 MCG/10 ML SYRINGE IVP ONE ×2 (09:20→09:49)
[2019-06-05] MEDS ORDERED: *HR* Magnesium Sulfate 1 GM/2 ML VIAL ONE (09:40)
[2019-06-05] MEDS ORDERED: EPHEDrine 50 MG/ML VIAL ONE (09:50)
[2019-06-05] MEDS ORDERED: *HR* Vasopressin 20 UNIT/ML VIAL ONE (09:54)
[2019-06-05] MEDS ORDERED: Indomethacin 50 MG SUPP.RECT RC ONE (11:21)
[2019-06-05] MEDS ORDERED: Albuterol 2.5 MG/3 ML NEBULIZER ONE (11:56)
[2019-06-05] MEDS: Albuterol 2.5 MG/3 ML NEBULIZER IH ONE (11:58)
[2019-06-05] MEDS ORDERED: *HR* LORazepam 2 MG/ML VIAL IVP PRN ×3 (13:07)
--- NOTE | 2019-06-05 16:16 | Internal Med Progress Note ---
Hospitalist Progress Note - Encounter Date of Encounter: 06/05/19 Time of Encounter: 12:45 - Subjective Interval History: Mr Chaves is currently admitted for acute pancreatitis. He remains high risk at this time. Mr Chaves just returned from ERCP. Stent was placed in the CBD. ROCKET MOTOR TESTER has helped his pain. No fever or chills overnight. At this time he is somnolent post procedure. He had some respiratory issues during procedure and oxygen saturation 88% at this time. at bedside and discussed his need to stop ETOH intake with him (he previously denied use). - Exam Vitals: Temp Pulse Resp BP Pulse Ox 97.8 F 82 16 112/66 88 06/05/19 14:35 06/05/19 14:35 06/05/19 14:35 06/05/19 14:35 06/05/19 14:35 Exam: General: Alert and oriented. Comfortable at this time. Somnolent but arousable. Skin: Normal color, no rash, H: Normocephalic. EENT: EOMI, Mucus membranes dry. Cardiovascular: Normal S1 & S2, Regular. No murmur. Not tachycardic c urrently. Lungs: Crackles heart bilaterally. Abdomen: Soft, distended. Hypoactive bowel sounds. Tender epigastric region. Extremities: No deformity, no edema Neurological: Normal cognition and motor skills. Pulses: radial pulses normal +2. Rest of the physical exam is non contributory - Assessment and Plan (1) Acute respiratory failure with hypoxia Current Visit: Yes Status: Acute Assessment and Plan: Pt has developed hypoxemia - ? fluids versus early ARDS. Needs to continue IV fluids for pancreatitis. Check CXR and give a dose of IV Lasix. (2) Acute gallstone pancreatitis Current Visit: Yes Status: Acute Assessment and Plan: Pt presented to ED with acute pancreatitis. Thought to have CBD stone but no obstruction. Monitored on med surg - had ERCP this AM. Significant edema in area. Pain control and fluids. Ice chips. Pt at high risk for further complications. (3) Hypertension Current Visit: Yes Status: Acute Assessment and Plan: Controlled at this time. (4) Hyperlipidemia Current Visit: Yes Status: Chronic Assessment and Plan: Chronic issue. (5) Tobacco abuse Current Visit: Yes Status: Chronic Assessment and Plan: cessation counselling. (6) ETOH abuse Current Visit: Yes Status: Suspected Assessment and Plan: Pt denied ETOH but was discussing cessation with him today. CIWA placed. - Time Spent with Patient Total time spent is greater than 50% in coordination of care (as documented) at patient's floor/unit and/or counseling patient: Internal Medicine: Result - Labs CBC & Chem 7: 06/04/19 04:18 06/04/19 04:18 - ABG Interpretation ABG results: ABG ABG pH 7.42 pH Units (7.32-7.45) 06/04/19 09:37 ABG pCO2 38 mmHg (35-45) 06/04/19 09:37 ABG pO2 46 mmHg (85-104) L* 06/04/19 09:37 ABG O2 Saturation 83 % (95-98) L 06/04/19 09:37 PT/INR, D-dimer PT 12.2 Seconds (9.4-12.1) H 06/04/19 04:18 - Impressions Impressions Chest X-Ray 06/04/19 09:03 IMPRESSION: Mild bilateral lower lobe opacities which could represent edema or infiltrates. Small bilateral effusions. Follow up to resolution is suggested. D/ / 06/04/2019 11:12:08 Tegan Cahcon MD / lv Interpreting Provider: Tegan Chacon MD Cath/Invasive Procedure 06/05/19 00:00 IMPRESSION: Biliary stent placement. Please refer to the procedure report for further details. D/ / Franck Magana MD / Franck Magana MD Interpreting Provider: Franck Magana MD Chest X-Ray 06/05/19 13:08 IMPRESSION: Vascular congestion with bibasilar atelectasis or infiltrate, left greater than right. D/ / 06/05/2019 14:31:13 Franck Magana MD / lv Interpreting Provider: Franck Magana MD Consult Discharge Plan - Plan Referrals: NONE,PCP [Primary Care Provider] - (3) Hypertension Qualifiers: Hypertension type: essential hypertension Qualified Code(s): I10 - Essential (primary) hypertension (4) Hyperlipidemia Qualifiers: Hyperlipidemia type: mixed hyperlipidemia Qualified Code(s): E78.2 - Mixed hyperlipidemia
[2019-06-05 17:11] LABS: Basophils % 0.1 %; Hematocrit 41.2 % (37.5-50.1); Immature Granulocytes % 1.1 % (0-4); Lymphocytes % 5.7 %; Mean Corpuscular HGB Conc 34.5 g/dL (31.6-35.5); Mean Corpuscular Hemoglobin 34.5 pg (28.0-33.3); Mean Corpuscular Volume 100.2 fL (83.0-100.0); Mean Platelet Volume 10.1 fL (9.4-12.4); Monocytes # 1.3 K/mcL (0.0-1.3); Monocytes % 7.2 %; Neutrophils # 15.6 K/mcL (1.6-8.9); Platelet Count 149 K/mcL (140-400); Red Blood Count 4.11 M/mcL (4.19-5.50); Segmented Neutrophils % 85.9 %; White Blood Count 18.2 K/mcL (4.3-11.1)
[2019-06-05 17:13] LABS: Hemoglobin 14.2 g/dL (12.9-16.9)
[2019-06-05] MEDS ORDERED: 0.9 % Sodium Chloride 500 ML ONE (17:21)
[2019-06-05 17:31] LABS: Alanine Aminotransferase 12 Units/L (7-52); Albumin 3.4 g/dL (3.5-5.7); Albumin/Globulin Ratio 1.3 (1.1-2.2); Alkaline Phosphatase 56 Units/L (34-104); Aspartate Amino Transferase 15 Units/L (13-39); BUN/Creatinine Ratio 16 (6-26); Bilirubin,Total 1.2 mg/dL (0.3-1.0); Blood Urea Nitrogen 12 mg/dL (8-23); Calcium 7.4 mg/dL (8.6-10.3); Carbon Dioxide 24 mEq/L (23-29); Chloride 101 mEq/L (98-107); Globulin 2.6 g/dL (2.4-3.5); Glucose 119 mg/dL (70-105); Lipase 188 Units/L (11-82); Osmolality,Calculated 283 (280-300); Potassium 3.3 mEq/L (3.5-5.1); Sodium 136 mEq/L (136-145); eGFR For African Americans > 60 (> 60); eGFR For Non-African Americans > 60 (> 60)
[2019-06-06 01:08] LABS: Basophils % 0.1 %; Eosinophils % 0.1 %; Hematocrit 39.2 % (37.5-50.1); Immature Granulocytes % 0.7 % (0-4); Lymphocytes # 1.3 K/mcL (0.6-4.6); Lymphocytes % 9.5 %; Mean Corpuscular HGB Conc 33.2 g/dL (31.6-35.5); Mean Corpuscular Hemoglobin 33.9 pg (28.0-33.3); Mean Corpuscular Volume 102.1 fL (83.0-100.0); Mean Platelet Volume 9.9 fL (9.4-12.4); Monocytes % 7.6 %; Neutrophils # 11.3 K/mcL (1.6-8.9); Platelet Count 142 K/mcL (140-400); Red Blood Count 3.84 M/mcL (4.19-5.50); Red Cell Distribution Width 14.2 % (11.5-14.5); White Blood Count 13.7 K/mcL (4.3-11.1)
[2019-06-06 01:27] LABS: Alanine Aminotransferase 11 Units/L (7-52); Albumin 3.2 g/dL (3.5-5.7); Albumin/Globulin Ratio 1.3 (1.1-2.2); Alkaline Phosphatase 55 Units/L (34-104); Aspartate Amino Transferase 15 Units/L (13-39); BUN/Creatinine Ratio 17 (6-26); Bilirubin,Total 1.1 mg/dL (0.3-1.0); Blood Urea Nitrogen 14 mg/dL (8-23); Calcium 7.2 mg/dL (8.6-10.3); Carbon Dioxide 28 mEq/L (23-29); Chloride 101 mEq/L (98-107); Globulin 2.5 g/dL (2.4-3.5); Glucose 117 mg/dL (70-105); Lipase 112 Units/L (11-82); Osmolality,Calculated 286 (280-300); Potassium 3.6 mEq/L (3.5-5.1); Sodium 137 mEq/L (136-145); Total Protein 5.7 g/dL (6.4-8.9); eGFR For African Americans > 60 (> 60); eGFR For Non-African Americans > 60 (> 60)
[2019-06-06] MEDS: Morphine PCA 30 MG/ 30 ML 30 ML PCA.VIAL IVC PRN (06:17)
[2019-06-06] MEDS ORDERED: 0.9 % Sodium Chloride 1,000 ML IVC SCH ×3 (08:00→18:45)
--- NOTE | 2019-06-06 08:16 | AcuteCare Surgery Consult Note ---
Date of Encounter: 06/06/19 Time of Encounter: 08:00 Assessment and Plan (1) Acute gallstone pancreatitis Current Visit: Yes Status: Acute Pt diagnosis of acute gallstone pancreatitis is discussed. Laparoscopic Cholecystectomy is recommended. Procedure for the surgery, risks and benefits are discussed in detail. Possible known complications for Laparoscopic Cholecystectomy are bleeding, infection, bile duct injury, bile leak, small intestine or stomach injury, stroke, DVT/PE, GA or . Pt understands these risks, which in this case are low. Pt wishes to proceed with surgery as soon as possible. Informed consent is obtained. Pt condition is stable. Surgery is scheduled. No IOC needed as pt had ERCP yesterday. (2) Hypertension Current Visit: Yes Status: Acute Qualifiers: Hypertension type: essential hypertension Qualified Code(s): I10 - Essential (primary) hypertension (3) Hyperlipidemia Current Visit: Yes Status: Chronic Qualifiers: Hyperlipidemia type: mixed hyperlipidemia Qualified Code(s): E78.2 - Mixed hyperlipidemia History of Present Illness Consult date: 06/06/19 Reason for consult: abdominal pain Requesting physician: Martínez Morrell History of present illness: This 68 y/o male pt presents to [facility] c/o severe e pigastric and RUQ abdominal pain. Pt reports pain is severe and unrelenting. Pt c/o LUQ pain as well. Pt reports pain radiates into back. Pt reports intractable nausea and vomiting. Pt denies changes in BM. Pt denies CP. He was having SOB on admission but, SOB is much better today. Pt denies fever. He was found to have acute gallstone pancreatitis. He had ERCP yesterday with clearance of sludge fr om the duct. Past Med Surg Social Fam HX - Past Medical History Medical history: no medical history, hypertension Psychiatric history: no psych history - Past Surgical History Surgical History: no surgical history - Social History Smoking Status: Current every day smoker Smokeless Tobacco Status: No Alcohol use: occasionally Drug use: none - Family History Brother Hx Family Cancer: Yes (Bone cancer in his brother) Medications and Allergies Lisinopril/Hydrochlorothiazide [Lisinopril-Hctz 10-12.5 mg Tab] 1 tab PO QAM 06/04/19 [History] Simvastatin [Zocor] 40 mg PO HS 06/04/19 [History] Allergy/AdvReac Type Severity Reaction Status Date / Time No Known Allergies Allergy Verified 06/03/19 15:26 Review of Systems All systems PM: The remainder of the systems were reviewed and are negative - Constitutional no anorexia, no chills, no fatigue, no fever(s), no night sweats, no weakness - EENT Nose, mouth and throat: no dizziness, no dry mouth, no dysphagia, no nasal congestion, no nasal discharge, no sinus pain, no sinus pressure, no sore throat - Cardiovascular dyspnea, no chest pain, no diaphoresis, no edema - Respiratory dyspnea, no cough, no wheezing - Gastrointestinal abdominal pain, bloating, cramping, heartburn, nausea, vomiting, no constipation, no diarrhea, no hematemesis - Genitourinary no dysuria, no flank pain, no urinary frequency - Musculoskeletal no back pain, no joint swelling, no limited range of motion, no neck pain - Integumentary no dry skin, no pruritus, no rash, no wounds, no jaundice - Neurological no confusion, no dizziness, no focal weakness, no weakness - Psychiatric no anxiety, no depression - Endocrine no fatigue - Hematologic/Lymphatic no easy bleeding, no easy bruising General Surgery Exam Initial Vital Signs Temp Pulse Resp BP Pulse Ox 97.3 F L 73 18 158/76 96 06/03/19 15:23 06/03/19 15:23 06/03/19 15:23 06/03/19 15:23 06/03/19 15:23 - General physical appearance well nourished, no distress, moderate pain. negative: jaundice - Eyes PERRL, normal ocular movement. negative: icteric - ENT no congestion, dry mucosa. negative: nasal discharge - Neck no masses, trachea midline, no lymphadectomy, no venous distension - Respiratory normal respiratory effort, clear to auscultation - Cardiovascular Cardiovascular exam: Present: RRR. Absent: JVD - Abdomen Abdomen general surgery: Present: bowel sounds present, soft, tender. Absent: distended, guarding, rebound Abdominal Tenderness: Present: epigastic, RUQ, LUQ - Genitourinary Present: normal penis with no external lesions - Integumentary Integumentary general surgery: Present: warm and dry - Neurologic Present: CN 2-12 grossly intact, normal coordination - Musculoskeletal Present: normal posture - Psychiatric Psychiatric general surgery: Present: A&Ox3, appropriate Exam Initial Vital Signs Temp Pulse Resp BP Pulse Ox 97.3 F L 73 18 158/76 96 06/03/19 15:23 06/03/19 15:23 06/03/19 15:23 06/03/19 15:23 06/03/19 15:23 Results - Labs 06/06/19 00:44 06/06/19 00:44 Abnormal lab results WBC 13.7 K/mcL (4.3-11.1) H 06/06/19 00:44 RBC 3.84 M/mcL (4.19-5.50) L 06/06/19 00:44 Hgb 17.6 g/dL (12.9-16.9) H 06/03/19 16:11 Hct 51.1 % (37.5-50.1) H 06/03/19 16:11 MCV 102.1 fL (83.0-100.0) H 06/06/19 00:44 MCH 33.9 pg (28.0-33.3) H 06/06/19 00:44 Neutrophils # 11.3 K/mcL (1.6-8.9) H 06/06/19 00:44 PT 12.2 Seconds (9.4-12.1) H 06/04/19 04:18 ABG pO2 46 mmHg (85-104) L* 06/04/19 09:37 ABG O2 Saturation 83 % (95-98) L 06/04/19 09:37 Sodium 132 mEq/L (136-145) L 06/03/19 16:11 Potassium 3.3 mEq/L (3.5-5.1) L 06/05/19 16:57 Glucose 117 mg/dL (70-105) H 06/06/19 00:44 POC Glucose 111 mg/dL (70-99) H 06/04/19 17:10 Calculated Osmolality 277 (280-300) L 06/03/19 16:11 Calcium 7.2 mg/dL (8.6-10.3) L 06/06/19 00:44 Total Bilirubin 1.1 mg/dL (0.3-1.0) H 06/06/19 00:44 Serum Total Protein 5.7 g/dL (6.4-8.9) L 06/06/19 00:44 Albumin 3.2 g/dL (3.5-5.7) L 06/06/19 00:44 Lipase 112 Units/L (11-82) H 06/06/19 00:44 Diabetes panel 06/05/19 06/06/19 Range/Units 16:57 00:44 Sodium 136 137 (136-145) mEq/L Potassium 3.3 L 3.6 (3.5-5.1) mEq/L Chloride 101 101 (98-107) mEq/L Carbon Dioxide 24 28 (23-29) mEq/L BUN 12 14 (8-23) mg/dL Creatinine 0.77 0.81 (0.70-1.30) mg/dL Glucose 119 H 117 H (70-105) mg/dL Calcium 7.4 L 7.2 L (8.6-10.3) mg/dL AST 15 15 (13-39) Units/L ALT 12 11 (7-52) Units/L Alkaline Phosphatase 56 55 (34-104) Units/L Albumin 3.4 L 3.2 L (3.5-5.7) g/dL Calcium panel 06/05/19 06/06/19 Range/Units 16:57 00:44 Calcium 7.4 L 7.2 L (8.6-10.3) mg/dL Albumin 3.4 L 3.2 L (3.5-5.7) g/dL Pituitary panel 06/05/19 06/06/19 Range/Units 16:57 00:44 Sodium 136 137 (136-145) mEq/L Potassium 3.3 L 3.6 (3.5-5.1) mEq/L Chloride 101 101 (98-107) mEq/L Carbon Dioxide 24 28 (23-29) mEq/L BUN 12 14 (8-23) mg/dL Creatinine 0.77 0.81 (0.70-1.30) mg/dL Glucose 119 H 117 H (70-105) mg/dL Calcium 7.4 L 7.2 L (8.6-10.3) mg/dL Adrenal panel 06/05/19 06/06/19 Range/Units 16:57 00:44 Sodium 136 137 (136-145) mEq/L Potassium 3.3 L 3.6 (3.5-5.1) mEq/L Chloride 101 101 (98-107) mEq/L Carbon Dioxide 24 28 (23-29) mEq/L BUN 12 14 (8-23) mg/dL Creatinine 0.77 0.81 (0.70-1.30) mg/dL Glucose 119 H 117 H (70-105) mg/dL Calcium 7.4 L 7.2 L (8.6-10.3) mg/dL Total Bilirubin 1.2 H 1.1 H (0.3-1.0) mg/dL AST 15 15 (13-39) Units/L ALT 12 11 (7-52) Units/L Alkaline Phosphatase 56 55 (34-104) Units/L Albumin 3.4 L 3.2 L (3.5-5.7) g/dL All other labs normal. - Imaging CT scan - abdomen: image reviewed (acute gallstone pancreatitis) CT scan - pelvis: image reviewed Consult Discharge Plan - Plan Referrals: NONE,PCP [Primary Care Provider] -
[2019-06-06] MEDS: *HR* Heparin 5,000 UNIT/ML VIAL SQ SCH ×3 (08:57→23:47)
--- NOTE | 2019-06-06 10:53 | Internal Med Progress Note ---
Hospitalist Progress Note - Encounter Date of Encounter: 06/06/19 Time of Encounter: 10:30 - Subjective Interval History: Mr Chaves is currently admitted for acute pancreatitis. He remains moderate to high risk due to potential for worsening clinical and respiratory status. Mr Chaves is still having pain. He drops his oxygen saturation when oxygen off. No fever or chills. No diarrhea or urinary symptoms. at bedside and understands that he needs his gallbladder removed. - Exam Vitals: Temp Pulse Resp BP Pulse Ox 98.0 F 94 16 112/61 89 06/06/19 07:20 06/06/19 09:10 06/06/19 07:20 06/06/19 07:20 06/06/19 09:10 Exam: General: Alert and oriented. Comfortable at this time. Interactive and more alert today. Skin: Normal color, no rash, H: Normocephalic. EENT: EOMI, Mucus membranes dry. Cardiovascular: Normal S1 & S2, Regular. No murmur. Not tachycardic currently. Lungs: Crackles heart bilaterally. Abdomen: Soft, distended. Hypoactive bowel sounds. Tender epigastric region. Extremities: No deformity, no edema Neurological: Normal cognition and motor skills. Pulses: radial pulses normal +2. Rest of the physical exam is non contributory - Assessment and Plan (1) Acute respiratory failure with hypoxia Current Visit: Yes Status: Acute Assessment and Plan: Pt has developed hypoxemia - Continues today Most likely related to fluids - will need diuresing at some point. Continue oxygen. (2) Acute gallstone pancreatitis Current Visit: Yes Status: Acute Assessment and Plan: Pt presented to ED with acute pancreatitis. Thought to have CBD stone but no obstruction. Monitored on med surg - had ERCP Significant edema in area. Continue pain control. To have lap jesus. (3) Hypertension Current Visit: Yes Status: Acute Assessment and Plan: Controlled at this time. (4) Hyperlipidemia Current Visit: Yes Status: Chronic Assessment and Plan: Chronic issue. (5) Tobacco abuse Current Visit: Yes Status: Chronic Assessment and Plan: cessation counselling. (6) ETOH abuse Current Visit: Yes Status: Suspected Assessment and Plan: Currently on CIWA - Time Spent with Patient Total time spent is greater than 50% in coordination of care (as documented) at patient's floor/unit and/or counseling patient: Internal Medicine: Result - Labs CBC & Chem 7: 06/06/19 00:44 06/06/19 00:44 Labs: Short CBC 06/05/19 06/06/19 Range/Units 16:57 00:44 WBC 18.2 H 13.7 H (4.3-11.1) K/mcL Hgb 14.2 D 13.0 (12.9-16.9) g/dL Hct 41.2 39.2 (37.5-50.1) % Plt Count 149 142 (140-400) K/mcL Neutrophils # 15.6 H 11.3 H (1.6-8.9) K/mcL BMP 06/05/19 06/06/19 16:57 00:44 Sodium 136 137 Potassium 3.3 L 3.6 Chloride 101 101 Carbon Dioxide 24 28 BUN 12 14 Creatinine 0.77 0.81 Glucose 119 H 117 H Calcium 7.4 L 7.2 L Liver Function 06/05/19 06/06/19 Range/Units 16:57 00:44 Total Bilirubin 1.2 H 1.1 H (0.3-1.0) mg/dL AST 15 15 (13-39) Units/L ALT 12 11 (7-52) Units/L Alkaline Phosphatase 56 55 (34-104) Units/L Albumin 3.4 L 3.2 L (3.5-5.7) g/dL - ABG Interpretation ABG results: ABG ABG pH 7.42 pH Units (7.32-7.45) 06/04/19 09:37 ABG pCO2 38 mmHg (35-45) 06/04/19 09:37 ABG pO2 46 mmHg (85-104) L* 06/04/19 09:37 ABG O2 Saturation 83 % (95-98) L 06/04/19 09:37 PT/INR, D-dimer PT 12.2 Seconds (9.4-12.1) H 06/04/19 04:18 - Impressions Impressions Cath/Invasive Procedure 06/05/19 00:00 IMPRESSION: Biliary stent placement. Please refer to the procedure report for further details. D/ / Franck Magana MD / Franck Magana MD Interpreting Provider: Franck Magana MD Chest X-Ray 06/05/19 13:08 IMPRESSION: Vascular congestion with bibasilar atelectasis or infiltrate, left greater than right. D/ / 06/05/2019 14:31:13 Franck Magana MD / lv Interpreting Provider: Franck Magana MD Consult Discharge Plan - Plan Referrals: NONE,PCP [Primary Care Provider] - ___ (3) Hypertension Qualifiers: Hypertension type: essential hypertension Qualified Code(s): I10 - Essential (primary) hypertension (4) Hyperlipidemia Qualifiers: Hyperlipidemia type: mixed hyperlipidemia Qualified Code(s): E78.2 - Mixed hyperlipidemia
[2019-06-06] MEDS ORDERED: *HR* Propofol 200 MG/20 ML VIAL IVP ONE (14:20)
[2019-06-06] MEDS ORDERED: Lidocaine -MPF 2% 2 ML VIAL ONE (14:24)
[2019-06-06] MEDS ORDERED: *HR* Rocuronium Bromide 50 MG/5 ML VIAL ONE (14:24)
[2019-06-06] MEDS ORDERED: Famotidine 20 MG/2 ML VIAL ONE (14:26)
[2019-06-06] MEDS ORDERED: Acetaminophen IV 1,000 MG/100 ML INFUS..BTL ONE (14:26)
[2019-06-06] MEDS ORDERED: Albuterol 2.5 MG/3 ML NEBULIZER ONE (14:27)
[2019-06-06] MEDS ORDERED: Famotidine 20 MG/2 ML VIAL IVP ONE (14:50)
[2019-06-06] MEDS ORDERED: Albuterol 2.5 MG/3 ML NEBULIZER IH ONE ×2 (14:50→17:38)
[2019-06-06] MEDS ORDERED: Acetaminophen IV 1,000 MG/100 ML INFUS..BTL IVPB ONE (14:50)
[2019-06-06] MEDS: Albuterol 2.5 MG/3 ML NEBULIZER IH ONE (15:00)
[2019-06-06] MEDS ORDERED: *HR* FentaNYL (PF) 100 MCG/2 ML VIAL ONE (15:31)
[2019-06-06] MEDS ORDERED: Lidocaine -MPF 4% 5 ML AMPUL ONE (15:32)
[2019-06-06] MEDS ORDERED: ceFAZolin 2,000 MG in Water for inj. (sterile) 20 ML IVP ONE (16:03)
[2019-06-06] MEDS ORDERED: Ondansetron 4 MG/2 ML VIAL ONE (16:16)
[2019-06-06] MEDS ORDERED: Dexamethasone 4 MG/ML VIAL ONE (16:16)
--- NOTE | 2019-06-06 17:20 | Anesthesia Evaluation PreOp ---
Date of Encounter: 06/06/19 Time of Encounter: 15:00 - Past History Planned Operation: Lap Cholecystectomy Cardiac History: HTN, Hyperlipidemia Pulmonary History: Smoker [employer] History: Denies Any Significant HX Other Medical History: Denies Any Significant HX Anesthesia History: No Prior Anesthetic Complications Alcohol Use: occasionally Drug use: none Medications and Allergies Lisinopril/Hydrochlorothiazide [Lisinopril-Hctz 10-12.5 mg Tab] 1 tab PO QAM 06/04/19 [History] Simvastatin [Zocor] 40 mg PO HS 06/04/19 [History] Allergy/AdvReac Type Severity Reaction Status Date / Time No Known Allergies Allergy Verified 06/03/19 15:26 - Meds/Allergy Pre-op Review Medications Reviewed: Yes Allergies Reviewed: Yes Beta Blockers on Current Med List: No Anesthesia Results - Labs 06/06/19 00:44 06/06/19 00:44 Laboratory Tests 06/06/19 06/06/19 00:44 00:44 Hgb 13.0 Hct 39.2 Plt Count 142 Sodium 137 Potassium 3.6 BUN 14 Creatinine 0.81 Anesthesia Exam Vital Signs/O2 Sat/Glucose, Most Current Temp Pulse Resp BP Pulse Ox 06/06/19 17:09 92 12 138/98 91 06/06/19 16:59 98.1 F 100 16 147/60 94 06/06/19 14:23 99 F 98 18 143/68 91 Height: 5'8 Weight: 232 lbs NPO (# of Hours): MN Pain Scale: 0 - HEENT Pupil (Motor): Pupils equal, EOMI Mallampati: III Teeth: Edentulous Oral Opening: Less than or equal to 3 - [employer] LOC: Oriented [employer] Motor: Normal RUE, Normal LUE, Normal RLE, Normal LLE, Normal Face [employer] Sensory: Normal: RUE, LUE, RLE, LLE, Face - Cardiac Rhythm: Regular Murmur: None JVD: No Carotid Bruit: No - Pulmonary Breath Sounds: bilateral Clear Respiratory Effort: Symmetrical Anesthesia Assess/Plan ASA Score: 2 Level of consciousness: Cooperative, Oriented Anesthetic Plan: General Autologous Blood: No Monitoring Plan: Standard Monitors Recovery Plan: PACU (Discussed GA, agrees to proceed)
--- NOTE | 2019-06-06 17:25 | Operative Note ---
Date of procedure: 06/06/19 Pre-op diagnosis: Acute gallstone pancreatitis Post-op diagnosis: same Procedure: Laparoscopic cholecystectomy Complications: None Anesthesia: GETA Surgeon: Arleth Copeland Was there an front desk assistant present: Yes Dental Service Chief: Rashida Huerta Estimated blood loss (cc): 20 Specimen: Gallbladder Condition: stable Disposition: PACU Procedure in Detail: This 68 year-old male was taken to the operating room and placed in the supine position. The anterior abdominal wall is prepped and draped in the usual sterile fashion. A 1-2 cm curvilinear incision is made in the infraumbilical area and subcutaneous tissue was dissected down to anterior rectus fascia. Fascia is grasped with a Daxa clamp, stay sutures were placed in the fascia is divided. Posterior rectus fascia and peritoneum were elevated and divided in the same manner. A Chad port is inserted. Exploration of the intraabdominal cavity reveals an abnormal gallbladder but, normal appearing liver. Under direct visualization after the injection of 0.5% Marcaine the three right subcostal 5 mm ports were inserted. The patient is placed in reverse Trendelenburg position and rotated to the left. The gallbladder is grasped and retracted in cephalad direction. It is also grasped and retracted in the lateral direction. The cystic duct was carefully identified circumferentially dissected and doubly clipped and divided between clips. The cystic artery is also doubly clipped and divided between clips. The gallbladder is dissected off the liver bed using electrocautery. Hemostasis was perfected using electrocautery. The gallbladder is removed from the intra-abdominal cavity using an Endo Catch bag. Copious irrigation is carried out in the intra-abdominal cavity, Cavanaugh's pouch and the gallbladder fossa. The pneumoperitoneum was allowed to escape under direct visualization. The ports were removed also under direct visualization. The fascia at the infraumbilical incision is closed using 0 Vicryl sutures. All skin incisions are closed using 4-0 Monocryl subcuticular stitches. Steri- Strips are placed. Sterile dressing is placed. Patient tolerated procedure well was taken to the PACU in good condition.
--- NOTE | 2019-06-06 17:28 | Anesthesia Evaluation Post Op ---
Date of Encounter: 06/06/19 Time of Encounter: 17:30 - Vital Signs Vital Signs: Vital Signs/O2 Sat/Glucose, Most Current Temp Pulse Resp BP Pulse Ox 06/06/19 17:19 98 14 147/60 91 06/06/19 17:09 92 12 138/98 91 06/06/19 16:59 98.1 F 100 16 147/60 94 06/06/19 14:23 99 F 98 18 143/68 91 - Lungs Lungs: Clear Ascult./Percussion - Airway Airway: Non-obstructed - Cardiovascular Regular Rate - Mental Status Mental Status: Alert & Oriented, Answers Appropriately - Pain Pain Scale: 0 - Nausea Vomiting Nausea Vomiting: Not Present - Hydration Hydration: Ice chips - Discharge PostOp Status: Transfer Patient to floor
[2019-06-06] MEDS ORDERED: Ondansetron 4 MG/2 ML VIAL IVP PRN (17:38)
[2019-06-06] MEDS ORDERED: *HR* LORazepam 2 MG/ML VIAL IVP PRN ×3 (17:38)
[2019-06-06] MEDS ORDERED: Morphine PCA 30 MG/ 30 ML 30 ML PCA.VIAL IVC PRN (17:38)
[2019-06-06] MEDS ORDERED: Naloxone 0.4 MG/ML INJ IVP PRN (17:38)
[2019-06-06] MEDS ORDERED: Promethazine 12.5 MG in 0.9 % Sodium Chloride 50 ML IVPB PRN (17:38)
[2019-06-06] MEDS ORDERED: Furosemide 20 MG/2 ML VIAL IVP ONE (18:43)
--- NOTE | 2019-06-06 21:57 | Gastroenterology Progress Note ---
Date of Encounter: 06/06/19 Time of Encounter: 08:00 - Time Spent With Patient Total time spent is greater than 50% in coordination of care (as documented) at patient's floor/unit and/or counseling patient: - Subjective Interval history: Presented with acute onset sharp abdominal pain in the right upper, epigastric and left upper quadrants The night prior, he had 4 beers with two cheeseburgers and reports 4 beers twice a week In the ED noted to have lipase above [address] finding of peripancreatic edema and 5 mm distal common bile duct Continues to have severe pain this morning, reporting not taking a deep breath limited due to pain Recommend IV hydration and NPO at this time. Yesterday patient had an ERCP and sphincterotomy due to the worsening symptoms and rising WBC. Today he is a tad better. Needs lap cholecystectomy. Suspect underlying chronic pancreatitis. Patient has history of 4-5 beers per day. Had drank 4 beers the day before the pain started. Recommend lap cholecystectomy and had a long discussion with him and regarding discontinuing alcohol. [place] from [place] of town and will follow up for his care with his primary and specialist in his town. - Constitutional Vitals: Temp Pulse Resp BP Pulse Ox 98.3 F 82 18 139/78 98 06/06/19 20:00 06/06/19 20:00 06/06/19 20:00 06/06/19 20:00 06/06/19 20:00 General appearance: Present: A&O X 3 Results - Labs CBC & Chem 7: 06/06/19 00:44 06/06/19 00:44 - ABG ABG results: ABG ABG pH 7.42 pH Units (7.32-7.45) 06/04/19 09:37 ABG pCO2 38 mmHg (35-45) 06/04/19 09:37 ABG pO2 46 mmHg (85-104) L* 06/04/19 09:37 ABG O2 Saturation 83 % (95-98) L 06/04/19 09:37 PT/INR, D-dimer PT 12.2 Seconds (9.4-12.1) H 06/04/19 04:18 - Impressions Impressions Chest X-Ray 06/05/19 13:08 IMPRESSION: Vascular congestion with bibasilar atelectasis or infiltrate, left greater than right. D/ / 06/05/2019 14:31:13 Franck Magana MD / lv Interpreting Provider: Franck Magana MD Consult Discharge Plan - Plan Referrals: NONE,PCP [Primary Care Provider] -
[2019-06-06] MEDS: ceFAZolin 1,000 MG in Water for inj. (sterile) 10 ML IVP SCH (23:45)
[2019-06-07] MEDS ORDERED: ceFAZolin 1,000 MG in Water for inj. (sterile) 10 ML IVP SCH
[2019-06-07 07:08] LABS: Basophils % 0.2 %; Hemoglobin 12.6 g/dL (12.9-16.9); Immature Granulocytes % 0.5 % (0-4); Mean Corpuscular HGB Conc 33.2 g/dL (31.6-35.5); Mean Corpuscular Hemoglobin 34.1 pg (28.0-33.3); Mean Corpuscular Volume 102.7 fL (83.0-100.0); Mean Platelet Volume 10.6 fL (9.4-12.4); Monocytes # 1.1 K/mcL (0.0-1.3); Monocytes % 9.4 %; Neutrophils # 9.9 K/mcL (1.6-8.9); Platelet Count 157 K/mcL (140-400); Red Cell Distribution Width 14.1 % (11.5-14.5); Segmented Neutrophils % 81.9 %; White Blood Count 12.1 K/mcL (4.3-11.1)
[2019-06-07 07:23] LABS: BUN/Creatinine Ratio 17 (6-26); Blood Urea Nitrogen 13 mg/dL (8-23); Calcium 7.6 mg/dL (8.6-10.3); Carbon Dioxide 29 mEq/L (23-29); Chloride 100 mEq/L (98-107); Glucose 124 mg/dL (70-105); Osmolality,Calculated 288 (280-300); Potassium 3.3 mEq/L (3.5-5.1); Sodium 138 mEq/L (136-145); eGFR For African Americans > 60 (> 60); eGFR For Non-African Americans > 60 (> 60)
[2019-06-07] MEDS: ceFAZolin 1,000 MG in Water for inj. (sterile) 10 ML IVP SCH ×2 (08:39→16:52)
[2019-06-07] MEDS: *HR* Heparin 5,000 UNIT/ML VIAL SQ SCH ×2 (08:40→16:53)
--- NOTE | 2019-06-07 08:56 | AcuteCareSurgery Progress Note ---
Date of Encounter: 06/07/19 Time of Encounter: 08:15 - Assessment and Plan (1) Acute gallstone pancreatitis Current Visit: Yes Status: Acute The patient has done well after laparoscopic appendectomy for acute gallstone pancreatitis. His lipase has normalized. He is advance to regular diet. He may be discharged from a surgical standpoint at any time. Follow-up acute care surgery clinic Subjective Narrative: The patient is seen and evaluated on morning rounds with the acute care surgery team. He is recovering well from his laparoscopic cholecystectomy. His lipase has normalized. We will advance to regular diet today. He can be discharged at any time from a surgical standpoint. Follow-up with the acute care surgery clinic. Objective Vital Signs - Last 8 Hours Temp Pulse Resp BP Pulse Ox 06/07/19 07:55 98.1 F 80 18 133/77 90 06/07/19 04:56 98.3 F 88 18 131/76 93 06/07/19 04:30 97 Intake and Output 06/06/19 06/07/19 06/07/19 23:59 07:59 15:59 Intake Total 588 100 / 110 10 / 110 Output Total 970 / 1770 450 / 450 Balance -960 / -1182 -350 / -340 10 / -340 Intake: IV Fluids 8 10 / 10 0.9 % Sodium Chloride 1,000 ML 0 / 558 @ 100 mls/hr IVC .Q10H PRIYA Rx#: [id number] Ancef 1,000 MG In Water for inj 10 10 10 / 10 . (sterile) 10 ML @ 200 mls/hr IVP Q8HR PRIYA Rx#:[id number] Oral 100 / 100 Output: Urine 950 / 1750 450 / 450 Estimated Blood Loss 20 / 20 Other: Weight 104.4 kg 103.2 kg Patient Weight 06/07/19 23:59 Weight 103.2 kg - General physical appearance well developed, well nourished, no distress, no pain - Respiratory normal respiratory effort, clear to auscultation - Cardiovascular Cardiovascular exam: Present: RRR, no murmurs/rubs/gallops - Abdomen Abdomen: Present: bowel sounds present, soft, tender (Incisional pain only) - Incision Incision: Present: clean and dry - Neurologic CN 2-12 grossly intact - Psychiatric oriented to time, oriented to person, oriented to place, speech is normal, memory intact - Labs 06/07/19 06:36 06/07/19 06:36 Diabetes panel 06/07/19 Range/Units 06:36 Sodium 138 (136-145) mEq/L Potassium 3.3 L (3.5-5.1) mEq/L Chloride 100 (98-107) mEq/L Carbon Dioxide 29 (23-29) mEq/L BUN 13 (8-23) mg/dL Creatinine 0.77 (0.70-1.30) mg/dL Glucose 124 H (70-105) mg/dL Calcium 7.6 L (8.6-10.3) mg/dL Calcium panel 06/07/19 Range/Units 06:36 Calcium 7.6 L (8.6-10.3) mg/dL Pituitary panel 06/07/19 Range/Units 06:36 Sodium 138 (136-145) mEq/L Potassium 3.3 L (3.5-5.1) mEq/L Chloride 100 (98-107) mEq/L Carbon Dioxide 29 (23-29) mEq/L BUN 13 (8-23) mg/dL Creatinine 0.77 (0.70-1.30) mg/dL Glucose 124 H (70-105) mg/dL Calcium 7.6 L (8.6-10.3) mg/dL Adrenal panel 06/07/19 Range/Units 06:36 Sodium 138 (136-145) mEq/L Potassium 3.3 L (3.5-5.1) mEq/L Chloride 100 (98-107) mEq/L Carbon Dioxide 29 (23-29) mEq/L BUN 13 (8-23) mg/dL Creatinine 0.77 (0.70-1.30) mg/dL Glucose 124 H (70-105) mg/dL Calcium 7.6 L (8.6-10.3) mg/dL Consult Discharge Plan - Plan Referrals: NONE,PCP [Primary Care Provider] -
[2019-06-07] MEDS ORDERED: Furosemide 40 MG/4 ML VIAL IVP ONE (09:21)
[2019-06-07] MEDS: *HR* OxyCODONE/APAP 5/325 TABLET PO PRN ×3 (12:12→21:25)
--- NOTE | 2019-06-07 15:51 | Internal Med Progress Note ---
Hospitalist Progress Note - Encounter Date of Encounter: 06/07/19 Time of Encounter: 08:30 - Subjective Interval History: Mr Chaves is currently admitted for acute pancreatitis and cholecystitis. He remains moderate to high risk due to potential for worsening clinical status. Mr Chaves is doing better. He is eating regular diet. Pain overall better. Still on oxygen with some dyspnea. - Exam Vitals: Temp Pulse Resp BP Pulse Ox 98.9 F 85 18 137/70 87 06/07/19 12:13 06/07/19 12:13 06/07/19 12:13 06/07/19 12:13 06/07/19 12:13 Exam: General: Alert and oriented. Upright in bed. Skin: Normal color, no rash, H: Normocephalic. EENT: EOMI, Mucus membranes moist. Cardiovascular: Normal S1 & S2, Regular. No murmur. Lungs: Decreased breath sounds Abdomen: Soft, distended. Tender at surgical sites. Extremities: No deformity, no edema Neurological: Normal cognition and motor skills. Pulses: radial pulses normal +2. Rest of the physical exam is non contributory - Assessment and Plan (1) Acute respiratory failure with hypoxia Current Visit: Yes Status: Acute Assessment and Plan: Continues to need oxygen supplementation. Wean as able. Diurese again today. (2) Acute gallstone pancreatitis Current Visit: Yes Status: Acute Assessment and Plan: Pt presented to ED with acute pancreatitis. Now s/p cholecystectomy and improving. Switch to PO pain meds. (3) Hypertension Current Visit: Yes Status: Acute Assessment and Plan: Controlled at this time. (4) Hyperlipidemia Current Visit: Yes Status: Chronic Assessment and Plan: Chronic issue. (5) Tobacco abuse Current Visit: Yes Status: Chronic Assessment and Plan: cessation counselling. (6) ETOH abuse Current Visit: Yes Status: Suspected Assessment and Plan: Currently on CIWA - Time Spent with Patient Total time spent is greater than 50% in coordination of care (as documented) at patient's floor/unit and/or counseling patient: Internal Medicine: Result - Labs CBC & Chem 7: 06/07/19 06:36 06/07/19 06:36 Labs: Short CBC 06/07/19 Range/Units 06:36 WBC 12.1 H (4.3-11.1) K/mcL Hgb 12.6 L (12.9-16.9) g/dL Hct 38.0 (37.5-50.1) % Plt Count 157 (140-400) K/mcL Neutrophils # 9.9 H (1.6-8.9) K/mcL BMP 06/07/19 06:36 Sodium 138 Potassium 3.3 L Chloride 100 Carbon Dioxide 29 BUN 13 Creatinine 0.77 Glucose 124 H Calcium 7.6 L - ABG Interpretation ABG results: ABG ABG pH 7.42 pH Units (7.32-7.45) 06/04/19 09:37 ABG pCO2 38 mmHg (35-45) 06/04/19 09:37 ABG pO2 46 mmHg (85-104) L* 06/04/19 09:37 ABG O2 Saturation 83 % (95-98) L 06/04/19 09:37 PT/INR, D-dimer PT 12.2 Seconds (9.4-12.1) H 06/04/19 04:18 - Impressions Impressions Chest X-Ray 06/05/19 13:08 IMPRESSION: Vascular congestion with bibasilar atelectasis or infiltrate, left greater than right. D/ / 06/05/2019 14:31:13 [facility]ck Magana MD / [facility] Interpreting Provider: Franck Magana MD Consult Discharge Plan - Plan Referrals: NONE,PCP [Primary Care Provider] - (3) Hypertension Qualifiers: Hypertension type: essential hypertension Qualified Code(s): I10 - Essential (primary) hypertension (4) Hyperlipidemia Qualifiers: Hyperlipidemia type: mixed hyperlipidemia Qualified Code(s): E78.2 - Mixed hyperlipidemia
[2019-06-08] MEDS: *HR* Heparin 5,000 UNIT/ML VIAL SQ SCH ×3 (00:15→16:24)
[2019-06-08] MEDS: ceFAZolin 1,000 MG in Water for inj. (sterile) 10 ML IVP SCH ×3 (00:15→16:25)
[2019-06-08] MEDS: *HR* OxyCODONE/APAP 5/325 TABLET PO PRN ×5 (01:43→22:14)
[2019-06-08 05:20] LABS: Hematocrit 38.8 % (37.5-50.1); Hemoglobin 12.8 g/dL (12.9-16.9); Mean Corpuscular Hemoglobin 33.3 pg (28.0-33.3); Mean Platelet Volume 9.9 fL (9.4-12.4); Platelet Count 191 K/mcL (140-400); Red Blood Count 3.84 M/mcL (4.19-5.50); Red Cell Distribution Width 13.8 % (11.5-14.5); White Blood Count 11.9 K/mcL (4.3-11.1)
[2019-06-08 05:39] LABS: BUN/Creatinine Ratio 19 (6-26); Blood Urea Nitrogen 13 mg/dL (8-23); Carbon Dioxide 27 mEq/L (23-29); Chloride 99 mEq/L (98-107); Glucose 122 mg/dL (70-105); Magnesium 2.4 mg/dL (1.6-2.6); Osmolality,Calculated 281 (280-300); Sodium 135 mEq/L (136-145); eGFR For African Americans > 60 (> 60); eGFR For Non-African Americans > 60 (> 60)
--- NOTE | 2019-06-08 08:07 | Discharge Summary ---
Orders not resulted at time of discharge: Pending orders 06/06/19 16:27 Surgical Pathology [PTH] Routine Date of Encounter: 06/08/19 Time of Encounter: 08:07 Hospital course: Mr. Chaves is a 68 year old male - Time Spent with Patient Total time spent providing and/or coordinating discharge services: - Discharge Medications Prescriptions: No Action Simvastatin [Zocor] 40 mg PO HS Lisinopril/Hydrochlorothiazide [Lisinopril-Hctz 10-12.5 mg Tab] 1 tab PO QAM Home Medications: Lisinopril/Hydrochlorothiazide [Lisinopril-Hctz 10-12.5 mg Tab] 1 tab PO QAM 06/04/19 [History] Simvastatin [Zocor] 40 mg PO HS 06/04/19 [History] Allergies/Adverse Reactions: Allergy/AdvReac Type Severity Reaction Status Date / Time No Known Allergies Allergy Verified 06/03/19 15:26 Date of admission: 06/03/19 19:39 Primary care physician: PCP NONE Consults: 06/04/19 04:42 Consult to Gastroenterology [CONS] Routine Consulting Provider: Gastroenterjamee Bailon Reason for Consult: Acute gallstone pancreatitis Call Completed: No 06/05/19 16:06 Consult to Surgery [CONS] Routine Consulting Provider: Arleth Steel Reason for Consult: cholecystitis Call Completed: Yes - Constitutional Vitals: Temp Pulse Resp BP Pulse Ox 99.3 F 90 18 160/91 87 06/08/19 06:59 06/08/19 06:59 06/08/19 06:59 06/08/19 06:59 06/08/19 06:59 - Discharge Instructions Follow Up With: NONE,PCP [Primary Care Provider] -
[2019-06-08] MEDS: Ibuprofen 800 MG TABLET PO SCH ×2 (09:25→16:24)
[2019-06-08] MEDS ORDERED: Furosemide 40 MG/4 ML VIAL IVP ONE (10:30)
[2019-06-08] MEDS ORDERED: Nitroglycerin 0.4 MG TAB.SUBL SL PRN (13:20)
[2019-06-08] MEDS ORDERED: Aspirin 325 MG TABLET PO ONE (13:20)
--- NOTE | 2019-06-08 13:34 | Internal Med Progress Note ---
<Luis Alberto Grossman - Last Filed: 06/08/19 13:48> Hospitalist Progress Note - Encounter Date of Encounter: 06/08/19 Time of Encounter: 09:30 - Subjective Interval History: Pt was lying in bed with family member in room upon arrival. States that his abdominal pain has improved however its still runner. States that appetite is improving and he was able to tolerate food yesterday. Denies any diarrhea, constipation, dyspnea. - Exam Vitals: Temp Pulse Resp BP Pulse Ox 98.9 F 80 20 157/83 89 06/08/19 11:14 06/08/19 11:27 06/08/19 11:14 06/08/19 11:14 06/08/19 11:14 Exam: General: Alert and oriented. Upright in bed. Skin: Normal color, no rash, H: Normocephalic. Cardiovascular: Normal S1 & S2, Regular. No murmur. Lungs: Decreased breath sounds Abdomen: Soft, distended. Tender at surgical sites. Extremities: No deformity, no edema Pulses: dorsal pedal pulses normal +2 B/L - Assessment and Plan (1) Acute respiratory failure with hypoxia Current Visit: Yes Status: Acute Assessment and Plan: -Pt developed hypoxemia 06/04 -Started on 2L oxygen nasal cannula -CXR 06/05 vascular congestion -Most likely secondary to fluid resuscitation -Will continue to supplement oxygen, wean as able -Diuresed 06/08, will see if it improves (2) Acute gallstone pancreatitis Current Visit: Yes Status: Acute Assessment and Plan: -Presented to ED 06/03 c/o epigastric pain that radiated to the back, worst with food, associated with nausea. -CT scan abdomen in ER showed peripancreatic edema concerning for pancreatitis and 5mm distal common bile duct concerning for gallstone blockage. -Lipase >1800 in ER -made NPO -Pain management w/ morphine -Aggressive fliud resuscitation -GI consulted; MRCP ordered 06/04/2019 -ERCP performed 06/05 -s/p lap cholecystecomy 06/06 -Improvement of symptoms; appetite progressing -Switch to PO pain meds (3) Abnormal EKG Current Visit: Yes Status: Acute Assessment and Plan: -Pt developed new onset SOB with hypoxia -New onset heartburn, belching 06/08 -EKG obtained showed ST-depression in leads II, V4, V5, and V6 -No prior EKG for comparison -Troponins 06/08 0.05 -Will repeat EKG in am -Serial troponins -Given aspirin, beta leeann -Nitro PRN -Continue to monitor; will get cardiology on board if needed (4) Hypertension Current Visit: Yes Status: Acute Assessment and Plan: Controlled at this time (5) Hyperlipidemia Current Visit: Yes Status: Chronic Assessment and Plan: Chronic issue (6) Smoking history Current Visit: Yes Status: Chronic Assessment and Plan: Smoking cessation discussed (7) ETOH abuse Current Visit: Yes Status: Suspected Assessment and Plan: Currently on CIWA - Time Spent with Patient Total time spent is greater than 50% in coordination of care (as documented) at patient's floor/unit and/or counseling patient: Internal Medicine: Result - Labs CBC & Chem 7: 06/08/19 04:54 06/08/19 04:54 Labs: Short CBC 06/08/19 Range/Units 04:54 WBC 11.9 H (4.3-11.1) K/mcL Hgb 12.8 L (12.9-16.9) g/dL Hct 38.8 (37.5-50.1) % Plt Count 191 (140-400) K/mcL BMP 06/08/19 04:54 Sodium 135 L Potassium 3.0 L Chloride 99 Carbon Dioxide 27 BUN 13 Creatinine 0.70 Glucose 122 H Calcium 8.0 L Cardiac Enzymes 06/08/19 Range/Units 10:42 Troponin I 0.05 H* (< 0.04) ng/mL - ABG Interpretation ABG results: ABG ABG pH 7.42 pH Units (7.32-7.45) 06/04/19 09:37 ABG pCO2 38 mmHg (35-45) 06/04/19 09:37 ABG pO2 46 mmHg (85-104) L* 06/04/19 09:37 ABG O2 Saturation 83 % (95-98) L 06/04/19 09:37 PT/INR, D-dimer PT 12.2 Seconds (9.4-12.1) H 06/04/19 04:18 Consult Discharge Plan - Plan Instructions: Laparoscopic Cholecystectomy (DC) Additional Instructions: General Surgical Discharge Instructions 1. No pushing, pulling, or lifting greater than 15 lbs for 4 weeks. 2. You may remove your dressings and shower beginning today, but no tub baths, soaking, or swimming for 2 weeks. 3. No driving for two weeks unless otherwise specified and then you may resume driving when you are off narcotics and are safe to react in a car. 4. Take ibuprofen every 8 hours for discomfort. If this does not relieve discomfort, you may take the as needed Percocet. Eat a small snack with pain medication as this will help reduce the risk of nausea. Take narcotics as directed. Do not take more narcotics then directed and do not share your narcotics with any other person. Do not drink alcohol while on narcotics. You can take the Zofran/ondansetron if needed for nausea or with a dose of narcotics to prevent nausea. 5. Take stool softeners (Colace) or a water based laxative (Miralax) while taking narcotics. You may hold for loose stools. 6. Report any fevers greater than 100.5F, increase abdominal discomfort, drainage that looks like pus, increased redness or pain at the surgical site, or any vomiting. 7. Report any pain in the calves, shortness of breath, or rapid heartbeat. 8. Follow-up in the office as directed. 9. If you were prescribed antibiotics, do not stop them without talking to your provider. Referrals: Roland Lopez [Other] - 06/30/19 1:00 pm Arleth Steel [Partnered Physician] - 06/22/19 9:10 am <Martínez Morrell - Last Filed: 06/08/19 15:34> Hospitalist Progress Note - Encounter Date of Encounter: 06/08/19 - Exam Vitals: Temp Pulse Resp BP Pulse Ox 98.9 F 80 20 157/83 89 06/08/19 11:14 06/08/19 11:27 06/08/19 11:14 06/08/19 11:14 06/08/19 11:14 - Assessment and Plan (1) Acute respiratory failure with hypoxia Current Visit: Yes Status: Acute (2) Acute gallstone pancreatitis Current Visit: Yes Status: Acute (3) Hypertension Current Visit: Yes Status: Acute (4) Hyperlipidemia Current Visit: Yes Status: Chronic (5) Tobacco abuse Current Visit: Yes Status: Chronic (6) ETOH abuse Current Visit: Yes Status: Suspected - Time Spent with Patient Total time spent is greater than 50% in coordination of care (as documented) at patient's floor/unit and/or counseling patient: Internal Medicine: Result - Labs CBC & Chem 7: 06/08/19 04:54 06/08/19 04:54 Labs: Short CBC 06/08/19 Range/Units 04:54 WBC 11.9 H (4.3-11.1) K/mcL Hgb 12.8 L (12.9-16.9) g/dL Hct 38.8 (37.5-50.1) % Plt Count 191 (140-400) K/mcL BMP 06/08/19 04:54 Sodium 135 L Potassium 3.0 L Chloride 99 Carbon Dioxide 27 BUN 13 Creatinine 0.70 Glucose 122 H Calcium 8.0 L Cardiac Enzymes 06/08/19 Range/Units 10:42 Troponin I 0.05 H* (< 0.04) ng/mL - ABG Interpretation ABG results: ABG ABG pH 7.42 pH Units (7.32-7.45) 06/04/19 09:37 ABG pCO2 38 mmHg (35-45) 06/04/19 09:37 ABG pO2 46 mmHg (85-104) L* 06/04/19 09:37 ABG O2 Saturation 83 % (95-98) L 06/04/19 09:37 PT/INR, D-dimer PT 12.2 Seconds (9.4-12.1) H 06/04/19 04:18 - Attending Attestation The history, physical exam, and medical decision making was performed by the medical student either while I was physically present and actively involved or I personally re-performed the exam and medical decision making. I have verified the accuracy of the medical student's documentation with regards to the history, physical exam findings, and medical decision making on 06/08/19. Mr Chaves is currently admitted for acute pancreatitis and cholecystitis. He remains moderate to high risk due to potential for worsening clinical status. Mr Chaves had more pain last night and now. Describes as indigestion. More ectopy on monitor (K 3.0). Lots of burping too. EKG done - 1mm ST depression laterally. Initial trop 0.05. Wants to go home. Exam Alert. Uncomfortable. Mucus membranes dry. EOMI. NC. Neck supple. Not tachycardic but frequent ectopy on monitor. Lungs no wheeze. Abd tender OR sites. No edema. No rash. O2 sats 85% on RA. I/P 1. Pancreatitis - resolved 2. "heartburn" - EKG with subtle changes. Trop slightly elevated. Recheck trop. ASA 3. Hypoxic resp failure - most likely due to fluids. Check CXR. 4. HTN - more elevated today Further diagnoses and plan as above. <Luis Alberto Grossman R - Last Filed: 06/08/19 13:48> (4) Hypertension Qualifiers: Hypertension type: essential hypertension Qualified Code(s): I10 - Essential (primary) hypertension (5) Hyperlipidemia Qualifiers: Hyperlipidemia type: mixed hyperlipidemia Qualified Code(s): E78.2 - Mixed hyperlipidemia <Martínez Morrell - Last Filed: 06/08/19 15:34> (3) Hypertension Qualifiers: Hypertension type: essential hypertension Qualified Code(s): I10 - Essential (primary) hypertension (4) Hyperlipidemia Qualifiers: Hyperlipidemia type: mixed hyperlipidemia Qualified Code(s): E78.2 - Mixed hyperlipidemia
--- NOTE | 2019-06-08 14:11 | Electrocardiograph Report ---
[place] [id number] Test Date: 2019-06-08 Pat Name: Macho Chaves Department: 110 Room: 08 Gender: M Negotiator: : 1950 Requested By: Martínez Morrell Order Number: [id number] Reading MD: Heather Goncalves Measurements Intervals [place] Rate: 79 P: 61 NE: 162 QRS: 34 QRSD: 97 T: 41 QT: 377 QTc: 412 Interpretive Statements SINUS RHYTHM NONSPECIFIC ST & T-WAVE ABNORMALITY Electronically Signed On 06-08-2019 14:09:36 EDT by Heather Goncalves
[2019-06-08] MEDS ORDERED: Perflutren Lipid Microsphere 1.3 ML in 0.9 % Sodium Chloride 8.7 ML IVP ONE (21:21)
[2019-06-09] MEDS: *HR* Heparin 5,000 UNIT/ML VIAL SQ SCH ×2 (00:28→08:04)
[2019-06-09] MEDS: Ibuprofen 800 MG TABLET PO SCH ×2 (00:28→08:03)
[2019-06-09] MEDS: ceFAZolin 1,000 MG in Water for inj. (sterile) 10 ML IVP SCH ×2 (00:28→08:04)
[2019-06-09 04:00] LABS: Basophils # 0.1 K/mcL (0.0-0.2); Basophils % 0.5 %; Eosinophils # 0.2 K/mcL (0.0-0.6); Eosinophils % 1.7 %; Hematocrit 39.3 % (37.5-50.1); Immature Granulocytes % 0.9 % (0-4); Lymphocytes # 1.8 K/mcL (0.6-4.6); Lymphocytes % 13.7 %; Mean Corpuscular HGB Conc 33.1 g/dL (31.6-35.5); Mean Corpuscular Hemoglobin 33.2 pg (28.0-33.3); Mean Corpuscular Volume 100.3 fL (83.0-100.0); Mean Platelet Volume 10.2 fL (9.4-12.4); Monocytes # 1.6 K/mcL (0.0-1.3); Neutrophils # 9.4 K/mcL (1.6-8.9); Platelet Count 203 K/mcL (140-400); Red Blood Count 3.92 M/mcL (4.19-5.50); Red Cell Distribution Width 13.8 % (11.5-14.5); Segmented Neutrophils % 71.2 %; White Blood Count 13.2 K/mcL (4.3-11.1)
[2019-06-09 04:20] LABS: BUN/Creatinine Ratio 17 (6-26); Blood Urea Nitrogen 14 mg/dL (8-23); Calcium 8.1 mg/dL (8.6-10.3); Carbon Dioxide 29 mEq/L (23-29); Chloride 99 mEq/L (98-107); Glucose 112 mg/dL (70-105); Osmolality,Calculated 285 (280-300); Potassium 3.2 mEq/L (3.5-5.1); Sodium 137 mEq/L (136-145); eGFR For African Americans > 60 (> 60); eGFR For Non-African Americans > 60 (> 60)
[2019-06-09] MEDS: *HR* OxyCODONE/APAP 5/325 TABLET PO PRN (06:07)
--- NOTE | 2019-06-09 08:35 | Discharge Summary ---
<Beck Mccloud Kameron - Last Filed: 06/09/19 15:26> - NOTES TO OUTPATIENT PROVIDER Notes to Outpatient Provider: Mr. Chaves was admitted for acute gallstone pancreatitis. Gastroenterology performed ERCP with sphincterotomy and temporary stent placement. General surgery also performed laparoscopic cholecystectomy. Procedures were completed without incident and the patient recovered well. However prior to discharge he did experience symptoms concerning for ACS. EKG showed ST depressions in lead II, V3, V4, V5. Troponin was elevated at 0.05 and trended down. The patient was recommended to stay for cardiology evaluation however he requested to be discharged and follow up with cardiology at home. Patient is being discharged in stable medical condition. Repeat CBC, CMP, and cardiology follow-up her highly recommended after discharge. Patient will also require follow-up with gastroenterology and repeat ERCP in 6-8 weeks is recommended for temporary stent removal. Orders not resulted at time of discharge: Pending orders 06/06/19 16:27 Surgical Pathology [PTH] Routine Date of Encounter: 06/09/19 Time of Encounter: 08:34 - Discharge Diagnosis (1) Acute gallstone pancreatitis Priority: Primary Status: Resolved (2) Status post laparoscopic cholecystectomy Priority: Secondary Status: Resolved (3) Status post endoscopic retrograde cholangiopancreatography Priority: Secondary Status: Resolved (4) Elevated troponin Priority: Secondary Status: Resolved (5) Abnormal EKG Priority: Secondary Status: Resolved Hospital course: Mr. Chaves is a 68 year old male with past medical history of hypertension and tobacco use who presented to the emergency department with the chief complaint of abdominal pain. Evaluation in the emergency department demonstrated mild leukocytosis, anemia, elevated lipase. CT of the abdomen demonstrated a 5 mm distal common bile duct calculus with peripancreatic edema concerning for pancreatitis. Gastroenterology consultation was immediately requested, who recommended admitting the patient to the hospital service and observing for spontaneous stone passing with tentative plan for ERCP. Per standard of care for pancreatitis patient was placed nothing by mouth, given pain and nausea control, and was started on intravenous fluids. Gastroenterology did evaluate the patient next morning, MRCP was performed, ERCP was recommended. ERCP was performed demonstrating gallbladder sludge, biliary sphincterotomy was performed and temporary stent was placed, with recommendation for repeat ERCP in 6-8 weeks to remove temporary stent. At that time general surgery consultation was also recommended for evaluation for prophylactic cholecystectomy. Laparoscopic cholecystectomy was performed without incident and the patient was kept for continued medical management. Prior to discharge patient had atypical symptoms concerning for ACS. EKG demonstrated ST depressions in leads 2, V4, V5, V6. Troponin was elevated at 0.05, then 0.05, then 0.04. Echocardiogram demonstrated moderate left ventricular diastolic dysfunction with preserved ejection fraction of 65%. The patient was recommended to stay for cardiology evaluation, however he was otherwise medically stable for discharge and decided to leave without cardiology evaluation. He stated he would follow up with cardiology as an outpatient. Patient was informed to return to the emergency department with any chest pain type symptoms, and he was given instructions to follow-up with a commercial or institutional cleaner and his PCP, with recommendations for repeat CBC and CMP within 3-5 days. He was discharged in stable medical condition with 3 day supply of pain medication and antiemetic. Discharge discussed with: patient, family - Time Spent with Patient Total time spent providing and/or coordinating discharge services: - Discharge Medications Prescriptions: New OxyCODONE/APAP 5/325 [Percocet 5/325 MG] 1 each PO Q8HR PRN 3 Days #9 tablet PRN Reason: Moderate Pain Ondansetron [Zofran] 4 mg IVP Q8HR PRN 3 Days #9 vial PRN Reason: Nausea And Vomiting Ondansetron HCl [Zofran] 4 mg PO Q8HR PRN 3 Days #9 tab PRN Reason: Nausea And Vomiting Continued Simvastatin [Zocor] 40 mg PO HS Lisinopril/Hydrochlorothiazide [Lisinopril-Hctz 10-12.5 mg Tab] 1 tab PO QAM Home Medications: Lisinopril/Hydrochlorothiazide [Lisinopril-Hctz 10-12.5 mg Tab] 1 tab PO QAM 06/04/19 [History] Simvastatin [Zocor] 40 mg PO HS 06/04/19 [History] Ondansetron HCl [Zofran] 4 mg PO Q8HR PRN 3 Days #9 tab 06/09/19 [Rx] Ondansetron [Zofran] 4 mg IVP Q8HR PRN 3 Days #9 vial 06/09/19 [Rx] OxyCODONE/APAP 5/325 [Percocet 5/325 MG] 1 each PO Q8HR PRN 3 Days #9 tablet 06/09/19 [Rx] Allergies/Adverse Reactions: Allergy/AdvReac Type Severity Reaction Status Date / Time No Known Allergies Allergy Verified 06/03/19 15:26 Date of admission: 06/03/19 19:39 Primary care physician: Roland Lopez Consults: 06/04/19 04:42 Consult to Gastroenterology [CONS] Routine Consulting Provider: Gastroenterology Adamaris Reason for Consult: Acute gallstone pancreatitis Call Completed: No 06/05/19 16:06 Consult to Surgery [CONS] Routine Consulting Provider: Arleth Steel Reason for Consult: cholecystitis Call Completed: Yes Discharging clinician: Beck Mccloud Anticipated date of discharge: 06/09/19 - Constitutional Vitals: Temp Pulse Resp BP Pulse Ox 98.4 F 71 17 130/70 92 06/09/19 08:20 06/09/19 08:20 06/09/19 08:20 06/09/19 08:20 06/09/19 08:20 Exam: Alert and oriented, no acute distress Heart in regular rate and rhythm without murmur or gallop auscultated Lungs clear to auscultation bilaterally without adventitia auscultated Abdomen soft, minimally tender surgical sites, normal bowel sounds present Extremities without deformity or edema Skin warm and dry - Patient Status Disposition: Home, Self-Care Condition: Good Functional capacity at discharge: independent ambulation Overall status at discharge: patient is progressing back to baseline - Discharge Instructions Instructions: Pancreatitis (DC), Laparoscopic Cholecystectomy (DC), Chronic Hypertension (DC) Follow Up With: Roland Lopez [Other] - 06/30/19 1:00 pm Arleth Steel [Partnered Physician] - 06/22/19 9:10 am Additional Instructions: General Surgical Discharge Instructions 1. No pushing, pulling, or lifting greater than 15 lbs for 4 weeks. 2. You may remove your dressings and shower beginning today, but no tub baths, soaking, or swimming for 2 weeks. 3. No driving for two weeks unless otherwise specified and then you may resume driving when you are off narcotics and are safe to react in a car. 4. Take ibuprofen every 8 hours for discomfort. If this does not relieve discomfort, you may take the as needed Percocet. Eat a small snack with pain medication as this will help reduce the risk of nausea. Take narcotics as directed. Do not take more narcotics then directed and do not share your narcotics with any other person. Do not drink alcohol while on narcotics. You can take the Zofran/ondansetron if needed for nausea or with a dose of narcotics to prevent nausea. 5. Take stool softeners (Colace) or a water based laxative (Miralax) while taking narcotics. You may hold for loose stools. 6. Report any fevers greater than 100.5F, increase abdominal discomfort, drainage that looks like pus, increased redness or pain at the surgical site, or any vomiting. 7. Report any pain in the calves, shortness of breath, or rapid heartbeat. 8. Follow-up in the office as directed. 9. If you were prescribed antibiotics, do not stop them without talking to your provider. You were evaluated in the hospital for EKG changes and elevated troponin. Cardiology consultation was recommended but refused. Echocardiogram was performed demonstrating diastolic dysfunction with preserved ejection fraction. It is highly recommended that he follow-up within 3-5 days with your primary care provider and see a commercial or institutional cleaner for medical recommendations as we suspect you need a stress test. We will discharge you with your home medications and further medication reconciliation recommendations can be made by your primary care provider and commercial or institutional cleaner. It is also highly recommended that you have repeat complete blood count and comprehensive metabolic panel within 3-5 days. It is also highly recommended that you follow-up with a golf course mechanic, and repeat ERCP is recommended in 6-8 weeks to remove temporary stent. As we discussed, you deferred referral here and will have your PCP facilitate a GI appt within that time. As instructed you need to go to ER immediately if chest pain, pressure, burning, shortness of breath occur as it could be cardiac related. If your PCP needs to get in contact with teams whom saw you here: Surgeon- Dr Mckenna Olson- [facility] doctor whom placed common bile duct stent- Dr Hao Díaz - Diet and Activity Activity: increase activity as tolerated Diet: advance to your usual diet <Suri Hoffman - Last Filed: 06/09/19 17:25> Orders not resulted at time of discharge: Pending orders 06/06/19 16:27 Surgical Pathology [PTH] Routine Date of Encounter: 06/09/19 - Discharge Diagnosis (1) Acute gallstone pancreatitis Status: Resolved (2) Hypertension Priority: Primary Status: Resolved Qualifiers: Hypertension type: essential hypertension Qualified Code(s): I10 - Essential (primary) hypertension (3) Hyperlipidemia Status: Chronic Qualifiers: Hyperlipidemia type: mixed hyperlipidemia Qualified Code(s): E78.2 - Mixed hyperlipidemia (4) Tobacco abuse Status: Chronic (5) Acute respiratory failure with hypoxia Status: Acute (6) ETOH abuse Status: Suspected Hospital course: Mr. Chaves is a 68 year old male - Time Spent with Patient Total time spent providing and/or coordinating discharge services: Date of admission: 06/03/19 19:39 Primary care physician: Roland Lopez Consults: 06/04/19 04:42 Consult to Gastroenterology [CONS] Routine Consulting Provider: Gastroenterjamee Bailon Reason for Consult: Acute gallstone pancreatitis Call Completed: No 06/05/19 16:06 Consult to Surgery [CONS] Routine Consulting Provider: Arleth Steel Reason for Consult: cholecystitis Call Completed: Yes - Constitutional Vitals: Temp Pulse Resp BP Pulse Ox 98.8 F 67 18 119/70 91 06/09/19 11:13 06/09/19 11:13 06/09/19 11:13 06/09/19 11:13 06/09/19 11:13 - Attending Attestation I examined this patient and my medical decision-making was reviewed with the Resident Physician Dr Mccloud. I agree with the documented findings, disposition and treatment plan as described except to the extent set forth below. Mr Chaves is currently admitted for acute pancreatitis and cholecystitis. He is discharging to home ([place]) medically stable and declining further investigation of chest discomfort and abn ekg awake, at bedside. no further chest discomfort, heart burn belching or chest pressure. no sob, n/v or diaphoresis. He is moving his bowels and eating drinking without incident. no ab pain. discussed abn trops, ekg and rec for cards eval and stress testing. He and decline. they will speak with her commercial or institutional cleaner on way home to schedule appt for back home in [place]. Counselled extensively on risk of cardiac ischemia, warning signs and low threshold to present to ED if sxs return now from when seen by cardiology. they are aware stent needs removed in 6-8 weeks, again will not be following up in [place] and they will communicate need for stent removal to his PCP on dc and PCP can facilitate an [place] GI appt. gen- alert, awake,appears stated age eyes- pupils equal round cv- reg rate and rhythm, normal s1,s2, no murmurs appreciated lungs- ctabl, no wheezing, rhonchi or crackles abd- soft, non tender, non distended, + bs neuro- AAOx3, CN grossly intact, no focal deficits 1. Acute Pancreatitis w sludge on ERCP and CBD stent placed- resolved, fu with PCP, needs GI follow up in 6-8 w for stent removal, already has appt with PCP and will get referred to local GI from there 2. "heartburn" w EKG with subtle changes and adynamic trop elevation to 0.05-he declined inpt cardiology eval/stress testing, his has already contacted her commercial or institutional cleaner and he will follow up for further work up/treatment in [place], they are aware this cannot be ruled out ischemic cardiac disease and he is at risk for cardiac event, they again declined further work up here 3. Hypoxic resp failure resolved, CXR without fluid overload or pna 4. HTN -cont home meds and further med changes/titration outpt, fu with pcp time spent on dc 45 min
[2019-06-09] MEDS ORDERED: Aspirin 81 MG TAB.CHEW PO SCH (09:00)
[2019-06-09 11:14] VITALS: BP 119/70
--- NOTE | 2019-06-11 11:36 | Electrocardiograph Report ---
[place] [id number] Test Date: 2019-06-08 Pat Name: Macho Chaves Department: 110 Room: 2N08 Gender: M Installment Agent: : 1950 Requested By: Beck Mccloud Order Number: [id number] Reading MD: Ramon Goins Measurements Intervals [place] Rate: 88 P: 62 [place]: 157 QRS: 35 QRSD: 96 T: 40 QT: 376 QTc: 422 Interpretive Statements SINUS RHYTHM non specific ST DEPRESSION [0.05+ mV ST DEPRESSION] Electronically Signed On 06-11-2019 11:35:21 EDT by Ramon Goins
== END 2019-06-09 16:17 | disposition home or self-care (01) | DRG 417 ==
LOC: 3ANU 15:18 → EMEROOARM 15:18 → SUATTDRO 19:39 → 3ANU 20:15 → 2NNU 06-05 19:05
PROVIDERS: ADMIT Internal Medicine; ATTEND Internal Medicine